=== PATIENT | female | born 1950 | race Caucasian/White ===

== ENCOUNTER 2021-08-30 09:14 | Outpatient (CLI) | payer OTHER, SELFPAY | END 2021-08-30 09:15 | disposition home or self-care (01) | PROVIDERS: PCP Family Medicine; Visit Provider Family Medicine | DX: M54.16 Radiculopathy, lumbar region (principal); M51.36 Other intervertebral disc degeneration, lumbar region | CPT/HCPCS: 62323; J0702; Q9966 ==

== ENCOUNTER 2021-10-11 10:12 | Outpatient (CLI) | payer OTHER, SELFPAY | END 2021-10-11 10:13 | disposition home or self-care (01) | LOC: INJ CL 10:14 | PROVIDERS: PCP Family Medicine; Visit Provider Family Medicine | DX: M54.16 Radiculopathy, lumbar region (principal); M51.36 Other intervertebral disc degeneration, lumbar region | CPT/HCPCS: 62323; J0702; Q9966 ==

== ENCOUNTER 2022-10-03 10:37 | Outpatient (CLI) | payer OTHER, SELFPAY | END 2022-10-03 10:38 | disposition home or self-care (01) | LOC: INJ CL 10:38 | PROVIDERS: PCP Family Medicine; Visit Provider Family Medicine | DX: M54.16 Radiculopathy, lumbar region (principal); M51.36 Other intervertebral disc degeneration, lumbar region | CPT/HCPCS: 62323; Q9966 ==

== ENCOUNTER 2023-03-03 19:49 | Outpatient (CLI) | payer OTHER, SELFPAY | END 2023-03-03 19:50 | disposition home or self-care (01) | LOC: AMB 03-05 10:51 | PROVIDERS: PCP Family Medicine; Visit Provider Family Medicine | DX: R53.81 Other malaise (principal); R53.1 Weakness | CPT/HCPCS: A0425; A0427 ==

== ENCOUNTER 2023-03-03 20:26 | Emergency (ER) | payer OTHER, SELFPAY ==
[2023-03-03] VITALS (20 sets, daily range): BP systolic 107–155; BP diastolic 71–97; PULSE 55–70; RESP 16; TEMP 36.6; O2SAT 95–100
--- NOTE | 2023-03-03 21:16 | CRLHL7_ITS ---
For Patients: As a result of the Century Cures Act, medical imaging exams and procedure reports are released immediately into your electronic medical record. You may view this report before your referring provider. If you have questions, please contact your health care provider. INDICATION: Bilateral arm ache and weakness, tingling fingers TECHNIQUE: Chest radiograph 1 view COMPARISON: 05/06/2021 FINDINGS: Mediastinum: The mediastinum is normal in appearance. Mild cardiomegaly is noted without interval change. Lung: Both lungs are unremarkable in appearance. The right lower lung zone is obscured by numerous overlying EKG wires. No sign of pleural effusion seen. No pneumothorax is identified. Bone and Soft tissue: Unremarkable for age. IMPRESSION: 1. Mild cardiomegaly is noted without interval change. Dictated by Aldo Velazquez MD @ 03/03/2023 10:57:01 PM Dictated by: Aldo Velazquez MD @ 03/03/2023 22:57:06 (Electronically Signed)
[2023-03-03 22:00] LABS: Troponin, Point-of-Care* 0.01 ng/ml (0.01-0.04)
[2023-03-03 22:01] LABS: Basophils Absolute Auto 0.04 K/uL (0.00-0.30); Basophils Percent Auto 0.8 % (0.0-3.0); Eosinophils Absolute Auto 0.09 K/uL (0.00-0.50); Eosinophils Percent Auto 1.9 % (0.0-7.0); Hematocrit 39.3 % (33.0-51.0); Hemoglobin* 12.4 gm/dL (12.0-16.0); Immature Granulocytes Abs Auto 0.01 K/uL (0.00-0.30); Immature Granulocytes Pct Auto 0.2 %; Lymphocytes Percent Auto 18.2 % (20-44); Mean Corpuscular HGB Conc 32 gm/dL (32-36); Mean Corpuscular Hemoglobin 30 pg (26-34); Mean Corpuscular Volume 94 fL (80-100); Neutrophils Absolute Auto 3.33 K/uL (1.7-7.0); Neutrophils Percent Auto 69.9 % (42.0-72.0); Platelet Count* 326 K/uL (140-440); RDW Coefficient of Variation % 12.6 % (11.5-15.5); Red Blood Count 4.19 m/uL (4.00-5.20); White Blood Count* 4.77 K/uL (4.50-11.00)
[2023-03-03 22:04] LABS: Slide Review Reflex No
[2023-03-03 22:15] LABS: Chloride* 100 mmol/L (96-114)
[2023-03-03 22:16] LABS: Potassium* 4.4 mmol/L (3.6-5.1); Sodium* 133 mmol/L (135-149)
--- NOTE | 2023-03-03 22:18 | ED.GENADULT ---
HPI - General Adult General Chief complaint: Weakness Stated complaint: Weakness, left arm pain Time Seen by Provider: 03/03/23 20:50 History of Present Illness HPI narrative: 35-40 minutes ago patient was on the phone with sister, during this phone call told sister she was feeling weird generalized weakness then weak on the left side. in tirage she states she didn 't really have weakness more pain. no nuero deficit noted in triage. 72-year-old woman presenting to the emergency department with concern of odd sensation and then presence of weakness describes it somewhat on the left side. Later seems to describe it more as an issue of pain. She describes feeling weak and then shaky. Now with just some finger tip sensory auditory bilaterally. Does have a history of chronic radicular symptoms in legs and feet. Sounds like some degree of restless legs? Denies a history of headaches. Maintains that taking medications regularly as prescribed. History taking is a little difficult. Did not have chest pain nor particular shortness of breath. No recent trauma. Daughter arrives later to describe more recently has been having delusions or hallucinations that involve some spirits, I believe 2 daughters of a resident, haunting adjacent apartment. She has been fixated on this. Sounds like this has been occurring over. Of a few months. In later conversation is initially quite hesitant or reticent but becomes increasingly candid. She does feel they could be listening from various devices as well. We speak in quieter tones initially. Related Data Home Medications Medication Instructions Recorded Confirmed amlodipine 2.5 mg tablet 2.5 mg PO DAILY 03/03/23 03/03/23 atenolol 100 mg tablet 100 mg PO DAILY 03/03/23 03/03/23 famotidine 40 mg tablet 40 mg PO DAILY 03/03/23 03/03/23 furosemide 20 mg tablet PO 03/03/23 gabapentin 100 mg capsule PO 03/03/23 lansoprazole 30 mg capsule,delayed 30 mg PO DAILY 03/03/23 03/03/23 release levothyroxine 112 mcg tablet 112 mcg PO DAILY 03/03/23 03/03/23 levothyroxine 125 mcg tablet 125 mcg PO DAILY 03/03/23 03/03/23 potassium chloride 20 mEq 20 meq PO BID 03/03/23 03/03/23 tablet,extended release(part/cryst) Allergies Allergy/AdvReac Type Severity Reaction Status Date / Time atorvastatin [From Lipitor] Allergy Verified 08/30/21 09:48 doxazosin [From Cardura] Allergy Verified 08/30/21 09:48 lisinopril Allergy Verified 08/30/21 09:48 metoprolol Allergy Verified 08/30/21 09:48 neomycin Allergy Verified 08/30/21 09:48 Penicillins Allergy Verified 08/30/21 09:48 sulfamethoxazole Allergy Verified 08/30/21 09:48 [From Bactrim] trimethoprim [From Bactrim] Allergy Verified 08/30/21 09:48 Review of Systems Status of ROS: Reports: 6 or more systems reviewed and unremarkable except as noted in History and below [facility] Social History Smoking Status: Never smoker How often do you have a drink containing alcohol: never AUDIT-C Alcohol total score: 0 Non-prescribed substance use: denies use Exam Narrative: Exam Narrative: Pleasant. Slim stature. NAD. Breathing easily. Lungs are clear. Back is actually nontender. I would hope to find some tenderness in the periscapular musculature that might explain some of her symptoms but nothing significant here. Extremities are well perfused without edema. Subjectively off to sensory on the finger tips as noted. No weaknesses. Actually quite good on strength throughout. Speaking smoothly. Thought content as noted above. Cranial nerves 2-12 are intact. Pupils are 2 mm and reactive and equal. Head is atraumatic. Neck is supple. Heart in regular rate and rhythm. Abdomen is soft and nontender. Const: Vital Signs, click to edit/add: Vital Signs - 24 hr 03/03/23 20:36 03/03/23 21:08 03/03/23 21:15 Temperature 97.8 F Pulse Rate 65 64 Pulse Rate [Pulse Oximeter] 70 Respiratory Rate 16 Blood Pressure Blood Pressure [Ri ght Upper Arm] 155/97 H Pulse Oximetry 99 100 95 Oxygen Delivery Me thod Room Air 03/03/23 21:17 03/03/23 21:18 03/03/23 21:33 Temperature Pulse Rate 64 64 Pulse Rate [Pulse Oximeter] Respiratory Rate Blood Pressure 107/71 138/79 Blood Pressure [Ri ght Upper Arm] Pulse Oximetry 99 100 Oxygen Delivery Me thod 03/03/23 21:36 03/03/23 21:47 03/03/23 22:02 Temperature Pulse Rate 61 70 Pulse Rate [Pulse Oximeter] Respiratory Rate Blood Pressure 135/83 136/89 Blood Pressure [Ri ght Upper Arm] Pulse Oximetry 100 99 Oxygen Delivery Me thod 03/03/23 22:03 03/03/23 22:15 03/03/23 22:17 Temperature Pulse Rate 68 70 67 Pulse Rate [Pulse Oximeter] Respiratory Rate Blood Pressure 132/89 Blood Pressure [Ri ght Upper Arm] Pulse Oximetry 100 99 99 Oxygen Delivery Me thod 03/03/23 22:30 03/03/23 22:33 03/03/23 22:45 Temperature Pulse Rate 62 62 55 L Pulse Rate [Pulse Oximeter] Respiratory Rate Blood Pressure 128/80 Blood Pressure [Ri ght Upper Arm] Pulse Oximetry 100 100 97 Oxygen Delivery Me thod 03/03/23 22:47 03/03/23 23:04 03/03/23 23:15 Temperature Pulse Rate 55 L 62 63 Pulse Rate [Pulse Oximeter] Respiratory Rate Blood Pressure 131/77 Blood Pressure [Ri ght Upper Arm] Pulse Oximetry 99 99 99 Oxygen Delivery Me thod 03/03/23 23:19 03/03/23 23:47 03/04/23 00:02 Temperature Pulse Rate 69 67 Pulse Rate [Pulse Oximeter] Respiratory Rate 16 16 Blood Pressure 137/92 H 133/83 132/81 Blood Pressure [Ri ght Upper Arm] Pulse Oximetry 95 99 Oxygen Delivery Me thod 03/04/23 00:16 03/04/23 00:30 03/04/23 00:32 Temperature Pulse Rate 65 70 70 Pulse Rate [Pulse Oximeter] Respiratory Rate 18 16 Blood Pressure 125/80 132/81 Blood Pressure [Ri ght Upper Arm] Pulse Oximetry 100 98 97 Oxygen Delivery Me thod 03/04/23 00:47 03/04/23 01:02 Temperature Pulse Rate 69 71 Pulse Rate [Pulse Oximeter] Respiratory Rate 18 16 Blood Pressure 137/91 H 126/78 Blood Pressure [Ri ght Upper Arm] Pulse Oximetry 99 98 Oxygen Delivery Me thod Course Vital Signs Vital signs: Initial Vital Signs Temperature 97.8 F 03/03/23 20:36 Temperature Source Temporal Artery Scan 03/03/23 20:36 Pulse Rate 70 03/03/23 20:36 Respiratory Rate 16 03/03/23 20:36 Blood Pressure 155/97 H 03/03/23 20:36 Blood Pressure Mean 116 H 03/03/23 20:36 Blood Pressure Position Supine 03/03/23 20:36 Pulse Oximetry 99 03/03/23 20:36 Oxygen Delivery Method Room Air 03/03/23 20:36 Vital Signs Temperature 97.8 F 03/03/23 20:36 Pulse Rate 70 03/03/23 20:36 Respiratory Rate 16 03/03/23 20:36 Blood Pressure 155/97 H 03/03/23 20:36 Pulse Oximetry 99 03/03/23 20:36 Oxygen Delivery Method Room Air 03/03/23 20:36 Temperature 97.8 F 03/03/23 20:36 Pulse Rate 71 03/04/23 01:02 Respiratory Rate 16 03/04/23 01:02 Blood Pressure 126/78 03/04/23 01:02 Pulse Oximetry 98 03/04/23 01:02 Oxygen Delivery Method Room Air 03/03/23 20:36 Medications Administered Medications: Discontinued Medications Generic Name Dose Route Start Last Admin Trade Name Freq PRN Reason Stop Dose Admin Sodium Chloride 1,000 mls @ 1,000 mls/hr 03/03/23 22:44 03/04/23 01:09 0.9 % Sodium Chloride 1000 Ml IV 03/03/23 23:43 Infused .Q1H ONE Infusion Medical Decision Making [facility] Narrative Medical decision making narrative: Initial evaluation focus is around the neuropathy/weakness. Question of CVA of sorts. Limited residual symptoms. Maybe complicated by anxiety. Differential I suppose also could include vascular disruption. Possible dysrhythmia. Later with report of escalating symptoms would also like to evaluate chemistries, thyroid, brain for any other anomaly/mass. Medication interactions? Dementia? A urinary tract infection could exacerbate but would not appear to be related to initially presenting symptoms. I am bothered by ache she has described into her arms, I believe her right arm, at 1 point. Consideration more of a vascular issue. Cannot reproduce on physical exam. IVs established. Received a L normal saline. Chest x-ray requested to evaluate mediastinum. Cardiac silhouette looks somewhat full otherwise no appreciable abnormality, infiltrate, with otherwise normal mediastinum Radiology over-read below INDICATION: Bilateral arm ache and weakness, tingling fingers TECHNIQUE: Chest radiograph 1 view COMPARISON: 05/06/2021 FINDINGS: Mediastinum: The mediastinum is normal in appearance. Mild cardiomegaly is noted without interval change. Lung: Both lungs are unremarkable in appearance. The right lower lung zone is obscured by numerous overlying EKG wires. No sign of pleural effusion seen. No pneumothorax is identified. Bone and Soft tissue: Unremarkable for age. IMPRESSION: 1. Mild cardiomegaly is noted without interval change CT head reviewed by me does not appear to show any acute abnormality. Symmetrical without evidence of mass. Radiology over-read below INDICATION: Hallucinations, fingertip numbness TECHNIQUE: CT Head without i.v. contrast. Coronal and sagittal reformats were obtained. COMPARISON: 02/23/2019 FINDINGS: CSF space: Unremarkable for age. Brain: No evidence of mass, acute infarction or hemorrhage is seen. No mass-effect or midline shift is seen. Mild diffuse cortical atrophy is noted. The brain parenchyma is otherwise normal in appearance with preservation of the hirsch-white matter junction. Calvarium: The visualized paranasal sinuses are well aerated. The mastoid air cells are clear. The visualized orbits are grossly unremarkable. The calvarium is unremarkable in appearance with no fractures identified. IMPRESSION: 1. No evidence of acute infarction, intracranial hemorrhage, or mass-effect seen. Revealed initial elements of case with Neurology. Newer aspects came to light later as described by family on arrival. Labs noted to be with elevated D-dimer. With radicular symptoms I am concerned for possible dissection though I think it is less likely. Radiology over-read below --suboptimal study. INDICATION: upper back pain, radiculopathy into fingers, elev d-dimer also concern for dissection . TECHNIQUE: CT chest PE was acquired with 95 cc Isovue 370 IV contrast. COMPARISON: None. FINDINGS: Heart and vasculature: Contrast opacification of the pulmonary arterial tree is adequate. No sign of pulmonary embolism. Heart size is enlarged. Thoracic aorta and pulmonary artery are normal in caliber.Coronary artery calcifications and/or stents. No significant contrast is noted within the ascending aorta and descending aorta. Limited evaluation for aortic dissection. Lungs and pleura: Mild bilateral emphysematous changes. Mild bibasilar atelectasis. No suspicious pulmonary opacities. Stable nodule abutting the left major fissure (/). No pleural effusions, pleural thickening, or pneumothorax. Lymph nodes/mediastinum: No mediastinal, hilar, or axillary adenopathy. Chest wall: No masses. Upper abdomen: No acute or significant findings. Bones: Unremarkable for age. IMPRESSION: No pulmonary embolism identified. No acute cardiopulmonary process identified. No significant contrast opacification of the thoracic aorta. Limited evaluation for dissection. Over time in the emergency department symptoms faded. Did not review again delusions/hallucinations. TSH did return rather suppressed. Too much exogenous thyroid might be contributing to the hallucination symptoms described? On further review it sounds as though had tried to decrease levothyroxine in the past and resulted in increased leg cramps. Does have gabapentin available. Appears safe generally. Discharged to care of family. Recommending close follow-up in primary care. See patient discharge plan Lab Data Lab results reviewed: Yes I reviewed the patient's lab results Labs: Lab Results 03/03/23 03/03/23 03/03/23 Range/Units 21:17 21:44 23:31 WBC 4.77 (4.50-11.00) K/uL RBC 4.19 (4.00-5.20) m/uL Hgb 12.4 (12.0-16.0) gm/dL Hct 39.3 (33.0-51.0) % MCV 94 (80-100) fL MCH 30 (26-34) pg MCHC 32 (32-36) gm/dL RDW Coeff of Arturo 12.6 (11.5-15.5) % Plt Count 326 (140-440) K/uL Neut % (Auto) 69.9 (42.0-72.0) % Lymph % (Auto) 18.2 L (20-44) % [place] % (Auto) 9.0 (0.0-11.0) % Eos % (Auto) 1.9 (0.0-7.0) % Baso % (Auto) 0.8 (0.0-3.0) % Neut # (Auto) 3.33 (1.7-7.0) K/uL Lymph # (Auto) 0.90 (0.90-2.90) K/uL [place] # (Auto) 0.40 (0.00-0.90) K/UL Eos # (Auto) 0.09 (0.00-0.50) K/uL Baso # (Auto) 0.04 (0.00-0.30) K/uL Abs Immat Gran (auto) 0.01 (0.00-0.30) K/uL Imm/Tot Granulo (auto) 0.2 % D-Dimer Quant (PE/DVT) 1.33 H (0.00-0.50) ug/ml Sodium 133 L (135-149) mmol/L Potassium 4.4 (3.6-5.1) mmol/L Chloride 100 (96-114) mmol/L Carbon Dioxide 26 (20-32) mmol/L Anion Gap 7 (7-15) mEq/L BUN 19 (7-30) mg/dL Creatinine 0.6 (0.5-1.5) mg/dL Estimated GFR 96 ml/min Glucose 84 (60-115) mg/dL Calcium 9.8 (8.4-10.6) mg/dL Magnesium 1.6 (1.5-2.6) mg/dL Troponin I < 0.01 L (0.01-0.04) ng/mL NT-Pro-B Natriuret Pep 1160 pg/mL TSH < 0.015 L (0.270-4.20) uIU/mL Urine Color Yellow (Yellow) Urine Appearance Clear (Clear) Urine pH 5.0 (5.0-8.5) Ur Specific [place] 1.015 (1.000-1.030) Urine Protein Negative (Negative) Urine Glucose (UA) Negative (Negative) Urine Ketones Negative (Negative) Urine Blood Negative (Negative) Urine Nitrite Negative (Negative) Urine Bilirubin Negative (Negative) Urine Urobilinogen 0.2 (0.2-1.0) Ur Leukocyte Esterase Negative (Negative) Urine RBC 2-5 A (0-2) Urine WBC 2-5 (0-5) Urine WBC Clumps None (None) Ur Squamous Epith Cells None (None-Few) Amorphous Sediment Few A (None) Urine Bacteria None (None) Ethyl Alcohol < 0.01 L (0.01-0.03) % POC Troponin I 0.01 (0.01-0.04) ng/ml ECG Data Attestation: I personally reviewed and interpreted this ECG as follows: (Normal sinus rhythm rate of 65) Discharge Plan Discharge Clinical Impression: Hearing voices, Hyperthyroidism, Radiculopathy Patient Disposition: Home w/ Parent or Adult Condition: Stable Additional Instructions: It appears you are getting too much thyroid medication or your thyroid is putting out too much thyroid hormone. I would like you to follow-up in clinic to clarify this picture. Usually is just a matter of decreasing the thyroid medication you are taking. Sounds as though recommendations were to decrease your thyroid medication in the past but you had too much leg cramps that may or may not have been related to that. You may find that taking your gabapentin more regularly and decreasing your thyroid medication in combination would be okay. These changes may also help you with some of the things you were mentioning of concern otherwise. Prescriptions: No Action atenolol 100 mg tablet 100 mg PO DAILY famotidine 40 mg tablet 40 mg PO DAILY amlodipine 2.5 mg tablet 2.5 mg PO DAILY potassium chloride 20 mEq tablet,ER particles/crystals 20 meq PO BID levothyroxine 125 mcg tablet 125 mcg PO DAILY lansoprazole 30 mg capsule,delayed release(DR/EC) 30 mg PO DAILY furosemide 20 mg tablet PO gabapentin 100 mg capsule PO levothyroxine 112 mcg tablet 112 mcg PO DAILY Follow Up/Referrals: Drea Escalante MD [Primary Care Provider] - Stand Alone Forms: [employer] Info Instructions
[2023-03-03 22:19] LABS: Anion Gap 7 mEq/L (7-15); Blood Urea Nitrogen* 19 mg/dL (7-30); Carbon Dioxide* 26 mmol/L (20-32); Creatinine* 0.6 mg/dL (0.5-1.5); Estimated Glomerular Filt Rate 96 ml/min; Glucose* 84 mg/dL (60-115)
[2023-03-03 22:20] LABS: Calcium* 9.8 mg/dL (8.4-10.6); D Dimer Quantitative* 1.33 ug/ml (0.00-0.50); Magnesium* 1.6 mg/dL (1.5-2.6)
[2023-03-03 22:23] LABS: Ethanol* < 0.01 % (0.01-0.03)
[2023-03-03 22:31] LABS: NT Pro B Type NatriureticPept* 1160 pg/mL; Troponin I* < 0.01 ng/mL (0.01-0.04)
--- NOTE | 2023-03-03 22:44 | CRLHL7_ITS ---
For Patients: As a result of the Century Cures Act, medical imaging exams and procedure reports are released immediately into your electronic medical record. You may view this report before your referring provider. If you have questions, please contact your health care provider. INDICATION: upper back pain, radiculopathy into fingers, elev d-dimer also concern for dissection . TECHNIQUE: CT chest PE was acquired with 95 cc Isovue 370 IV contrast. COMPARISON: None. FINDINGS: Heart and vasculature: Contrast opacification of the pulmonary arterial tree is adequate. No sign of pulmonary embolism. Heart size is enlarged. Thoracic aorta and pulmonary artery are normal in caliber.Coronary artery calcifications and/or stents. No significant contrast is noted within the ascending aorta and descending aorta. Limited evaluation for aortic dissection. Lungs and pleura: Mild bilateral emphysematous changes. Mild bibasilar atelectasis. No suspicious pulmonary opacities. Stable nodule abutting the left major fissure (/). No pleural effusions, pleural thickening, or pneumothorax. Lymph nodes/mediastinum: No mediastinal, hilar, or axillary adenopathy. Chest wall: No masses. Upper abdomen: No acute or significant findings. Bones: Unremarkable for age. IMPRESSION: No pulmonary embolism identified. No acute cardiopulmonary process identified. No significant contrast opacification of the thoracic aorta. Limited evaluation for dissection. Please note that all CT scans at this facility use dose modulation, iterative reconstruction, and/or weight-based dosing when appropriate to reduce radiation dose to as low as reasonably achievable. Dictated by Katya Landeros MD @ 03/04/2023 12:52:42 AM (Electronically Signed)
--- NOTE | 2023-03-03 22:51 | CRLHL7_ITS ---
For Patients: As a result of the Century Cures Act, medical imaging exams and procedure reports are released immediately into your electronic medical record. You may view this report before your referring provider. If you have questions, please contact your health care provider. INDICATION: Hallucinations, fingertip numbness TECHNIQUE: CT Head without i.v. contrast. Coronal and sagittal reformats were obtained. COMPARISON: 02/23/2019 FINDINGS: CSF space: Unremarkable for age. Brain: No evidence of mass, acute infarction or hemorrhage is seen. No mass-effect or midline shift is seen. Mild diffuse cortical atrophy is noted. The brain parenchyma is otherwise normal in appearance with preservation of the hirsch-white matter junction. Calvarium: The visualized paranasal sinuses are well aerated. The mastoid air cells are clear. The visualized orbits are grossly unremarkable. The calvarium is unremarkable in appearance with no fractures identified. IMPRESSION: 1. No evidence of acute infarction, intracranial hemorrhage, or mass-effect seen. Please note that all CT scans at this facility use dose modulation, iterative reconstruction, and/or weight-based dosing when appropriate to reduce radiation dose to as low as reasonably achievable. Dictated by: Aldo Velazquez MD @ 03/03/2023 23:55:54 (Electronically Signed)
[2023-03-03 22:59] LABS: Thyroid Stimulating Hormone* < 0.015 uIU/mL (0.270-4.20)
[2023-03-03] MEDS: 0.9 % SODIUM CHLORIDE 1000 ml 1,000 ML IV (23:19)
[2023-03-03 23:52] LABS: Appearance Urine Clear (Clear); Bilirubin Urine Negative (Negative); Blood Urine Negative (Negative); Color Urine Yellow (Yellow); Glucose Urine Negative (Negative); Ketones Urine Negative (Negative); Leukocyte Esterase Urine Negative (Negative); Nitrite Urine Negative (Negative); Protein Urine Negative (Negative); Specific Gravity Urine 1.015 (1.000-1.030); Urobilinogen Urine 0.2 (0.2-1.0)
[2023-03-04 00:02] VITALS: BP 132/81; PULSE 67; RESP 16; O2SAT 99
[2023-03-04 00:05] LABS: Amorphous Sediment Urine Few
[2023-03-04 00:16] VITALS: BP 125/80; PULSE 65; RESP 18; O2SAT 100
[2023-03-04 00:30] VITALS: PULSE 70; O2SAT 98
[2023-03-04 00:32] VITALS: BP 132/81; PULSE 70; RESP 16; O2SAT 97
[2023-03-04 00:47] VITALS: BP 137/91; PULSE 69; RESP 18; O2SAT 99
[2023-03-04 01:02] VITALS: BP 126/78; PULSE 71; RESP 16; O2SAT 98
--- NOTE | 2023-03-04 02:11 | PC.NURSE ---
DC instructions given to patient and her daughter, no further questions about DC instructions. all belongings sent home with patient
== END 2023-03-04 02:09 | disposition home or self-care (01) ==
PROVIDERS: Emergency Provider Family Medicine; PCP Family Medicine
DX: R44.0 Auditory hallucinations (principal); E03.9 Hypothyroidism, unspecified; M54.16 Radiculopathy, lumbar region
CPT/HCPCS: 36415; 70450; 71045; 71275; 80048; 81001; 82077; 83735; 83880; 84443; 84484; 85025; 85379; 93005; 99284; 99285; J7030; Q9967

== ENCOUNTER 2023-03-29 22:05 | Outpatient (CLI) | payer OTHER, SELFPAY | END 2023-03-29 22:06 | disposition home or self-care (01) | LOC: AMB 03-30 09:55 | PROVIDERS: PCP Family Medicine; Visit Provider Emergency Medicine | DX: I10 Essential (primary) hypertension (principal) | CPT/HCPCS: A0998 ==

== ENCOUNTER 2023-04-03 04:52 | Outpatient (CLI) | payer OTHER, SELFPAY | END 2023-04-03 04:53 | disposition home or self-care (01) | LOC: AMB 04-06 16:10 | PROVIDERS: PCP Family Medicine; Visit Provider Family Medicine | DX: I49.9 Cardiac arrhythmia, unspecified (principal); R53.1 Weakness | CPT/HCPCS: A0425; A0427 ==

== ENCOUNTER 2023-04-03 05:24 | Emergency (ER) | payer OTHER, SELFPAY ==
[2023-04-03] VITALS (14 sets, daily range): BP systolic 110–144; BP diastolic 72–99; PULSE 64–84; RESP 20; TEMP 36.1; O2SAT 89–100; BMI 15.0
--- NOTE | 2023-04-03 05:34 | ED_ITS ---
HPI - SOB/Dyspnea General Time Seen by Provider: 05:34 Date Seen: 05/02/23 Chief Complaint: Shortness of Breath/Dyspnea Stated Complaint: Short of breath/weakness Time Seen by Provider: 04/03/23 05:33 Source: patient, EMS, RN notes reviewed and old records reviewed Mode of arrival: ambulatory Limitations: no limitations History of Present Illness HPI Narrative: 72-year-old female comes in today with palpitations. History of left upper extremity radiculopathy and had a radiofrequency ablation yesterday. This evening felt like she was flushed and felt like her heart was pounding. For me she denies shortness of breath, chest pain, nausea, vomiting, diarrhea. Says she felt shaky with this episode as well . Related Data Home Medications Medication Instructions Recorded Confirmed amlodipine 2.5 mg tablet 2.5 mg PO DAILY 03/03/23 04/03/23 atenolol 100 mg tablet 100 mg PO DAILY 03/03/23 04/03/23 famotidine 40 mg tablet 40 mg PO DAILY 03/03/23 04/03/23 furosemide 20 mg tablet PO 03/03/23 gabapentin 100 mg capsule PO 03/03/23 lansoprazole 30 mg capsule,delayed 30 mg PO DAILY 03/03/23 04/03/23 release levothyroxine 112 mcg tablet 112 mcg PO DAILY 03/03/23 04/03/23 levothyroxine 125 mcg tablet 125 mcg PO DAILY 03/03/23 04/03/23 potassium chloride 20 mEq 20 meq PO BID 03/03/23 04/03/23 tablet,extended release(part/cryst) Allergies Allergy/AdvReac Type Severity Reaction Status Date / Time atorvastatin [From Lipitor] Allergy Verified 04/03/23 05:28 doxazosin [From Cardura] Allergy Verified 04/03/23 05:28 lisinopril Allergy Verified 04/03/23 05:28 metoprolol Allergy Verified 04/03/23 05:28 neomycin Allergy Verified 04/03/23 05:28 Penicillins Allergy Verified 04/03/23 05:28 sulfamethoxazole Allergy Verified 04/03/23 05:28 [From Bactrim] trimethoprim [From Bactrim] Allergy Verified 04/03/23 05:28 PFSH PFS Social History Smoking Status: Never smoker How often do you have a drink containing alcohol: never AUDIT-C Alcohol total score: 0 Non-prescribed substance use: denies use Exam Narrative: Exam Narrative: General: Well-developed and well-nourished, no acute distress Head: Atraumatic and normocephalic Eyes: Pupils are equal reactive, extraocular motions intact, conjunctiva clear ENT: External nose and ears are normal, posterior pharynx without erythema or exudate Neck: No midline cervical tenderness, full spontaneous range of motion the neck, trachea midline, no adenopathy Heart: Regular rate and rhythm no murmurs or thrills Lungs: Clear to auscultation bilaterally without wheezes or crackles Abdomen: Soft, nontender, nondistended with active bowel sounds Musculoskeletal: No tenderness, deformity, or edema Neurologic: Awake, alert, oriented x3 no gross focal neurologic deficits, cranial nerves intact as tested Psych: Mood and affect are appropriate Skin: No rash Const: Vital Signs, click to edit/add: Vital Signs - 24 hr 04/03/23 05:29 04/03/23 06:21 04/03/23 06:22 Temperature 97 F L Pulse Rate 84 76 Pulse Rate [Pulse Oximeter] 72 Respiratory Rate 20 Blood Pressure 140/94 H Blood Pressure [Ri ght Upper Arm] 144/99 H Pulse Oximetry 100 99 89 04/03/23 06:30 04/03/23 06:32 Temperature Pulse Rate 77 76 Pulse Rate [Pulse Oximeter] Respiratory Rate Blood Pressure 139/95 H Blood Pressure [Ri ght Upper Arm] Pulse Oximetry 100 100 Course Course ED Course: Patient seen and examined, emergency department record from March 03 reviewed. Patient presents today with palpitations, feeling like her heart is beating hard but not skipped beats or irregular. On exam here, monitor shows sinus rhythm with rate in the 70s. Lungs are clear and heart is regular. Labs ordered along with chest x-ray. Anticipate discharge Reevaluation(s) Time of Reevaluation #1: 06:25 Reevaluation #1: Chest x-ray independently interpreted by me demonstrates hyperinflation, no pneumothorax, no pleural effusion or infiltrate. Labs independently interpreted by me with negative troponin, normal CBC. Time of Reevaluation #2: 07:28 Reevaluation #2: Labs ordered and independently interpreted by me with normal basic metabolic panel, normal magnesium. Patient remained in sinus rhythm while in department and vital is stable. Stable for discharge with outpatient follow-up with primary care. Vital Signs Vital signs: Initial Vital Signs Temperature 97 F L 04/03/23 05:29 Temperature Source Temporal Artery Scan 04/03/23 05:29 Pulse Rate 72 04/03/23 05:29 Pulse Rhythm Regular 04/03/23 05:29 Pulse Strength 3+ Normal 04/03/23 05:29 Respiratory Rate 20 04/03/23 05:29 Blood Pressure 144/99 H 04/03/23 05:29 Blood Pressure Mean 114 H 04/03/23 05:29 Blood Pressure Position Sitting 04/03/23 05:29 Pulse Oximetry 100 04/03/23 05:29 Vital Signs Temperature 97 F L 04/03/23 05:29 Pulse Rate 72 04/03/23 05:29 Respiratory Rate 20 04/03/23 05:29 Blood Pressure 144/99 H 04/03/23 05:29 Pulse Oximetry 100 04/03/23 05:29 Temperature 97 F L 04/03/23 05:29 Pulse Rate 76 04/03/23 06:32 Respiratory Rate 20 04/03/23 05:29 Blood Pressure 139/95 H 04/03/23 06:32 Pulse Oximetry 100 04/03/23 06:32 MDM - SOB/Dyspnea Lab Data Labs: Lab Results 04/03/23 04/03/23 Range/Units 05:43 06:05 WBC 6.69 (4.50-11.00) K/uL RBC 3.81 L (4.00-5.20) m/uL Hgb 11.3 L (12.0-16.0) gm/dL Hct 35.7 (33.0-51.0) % MCV 94 (80-100) fL MCH 30 (26-34) pg MCHC 32 (32-36) gm/dL RDW Coeff of Arturo 13.1 (11.5-15.5) % Plt Count 368 (140-440) K/uL Neut % (Auto) 76.3 H (42.0-72.0) % Lymph % (Auto) 13.0 L (20-44) % [place] % (Auto) 8.8 (0.0-11.0) % Eos % (Auto) 1.0 (0.0-7.0) % Baso % (Auto) 0.6 (0.0-3.0) % Neut # (Auto) 5.10 (1.7-7.0) K/uL Lymph # (Auto) 0.90 (0.90-2.90) K/uL [place] # (Auto) 0.60 (0.00-0.90) K/UL Eos # (Auto) 0.07 (0.00-0.50) K/uL Baso # (Auto) 0.04 (0.00-0.30) K/uL Abs Immat Gran (auto) 0.02 (0.00-0.30) K/uL Imm/Tot Granulo (auto) 0.3 % Sodium 136 (135-149) mmol/L Potassium 4.3 (3.6-5.1) mmol/L Chloride 102 (96-114) mmol/L Carbon Dioxide 26 (20-32) mmol/L Anion Gap 8 (7-15) mEq/L BUN 14 (7-30) mg/dL Creatinine 0.6 (0.5-1.5) mg/dL Estimated Creat Clear 32.77 Estimated GFR 96 ml/min Glucose 98 (60-115) mg/dL Calcium 9.0 (8.4-10.6) mg/dL Magnesium 2.0 (1.5-2.6) mg/dL POC Troponin I 0.01 (0.01-0.04) ng/ml ECG Data Attestation: I personally reviewed and interpreted this ECG as follows: ECG interpretation date: 04/03/23 ECG interpretation time: 06:16 Interpretation: Performed at 6:16 a.m. ill interpreted by me with sinus rhythm rate 71, no acute ST elevations or depressions, normal intervals, normal axis, QTC 410, [place] 152. Compared to prior March 04, there are no acute changes Discharge Plan Discharge Clinical Impression: Heart palpitations Patient Disposition: Home, Self-Care Condition: Stable Instructions: Heart Palpitations (DC) Activity Level: No Restrictions Discharge Diet: Regular Prescriptions: No Action atenolol 100 mg tablet 100 mg PO DAILY famotidine 40 mg tablet 40 mg PO DAILY amlodipine 2.5 mg tablet 2.5 mg PO DAILY potassium chloride 20 mEq tablet,ER particles/crystals 20 meq PO BID levothyroxine 125 mcg tablet 125 mcg PO DAILY lansoprazole 30 mg capsule,delayed release(DR/EC) 30 mg PO DAILY furosemide 20 mg tablet PO gabapentin 100 mg capsule PO levothyroxine 112 mcg tablet 112 mcg PO DAILY Follow Up/Referrals: Drea Escalante MD [Primary Care Provider] - Stand Alone Forms: [facility] Info Instructions
--- NOTE | 2023-04-03 05:42 | CRLHL7_ITS ---
For Patients: As a result of the Century Cures Act, medical imaging exams and procedure reports are released immediately into your electronic medical record. You may view this report before your referring provider. If you have questions, please contact your health care provider. Indication: Palpitations Technique: Chest 2 views Comparison: Chest x-ray 03/03/2023 Findings/Impression: Cardiovascular and mediastinum: Heart size and vasculature are normal in caliber and appearance. Mediastinum is within normal limits. Lungs and pleural spaces: No pleural effusion or pneumothorax. No focal pulmonary consolidation. Bones and soft tissues: No significant findings. Dictated by Tomy Trujillo MD @ 04/03/2023 7:17:33 AM (Electronically Signed)
[2023-04-03 06:16] LABS: Basophils Absolute Auto 0.04 K/uL (0.00-0.30); Basophils Percent Auto 0.6 % (0.0-3.0); Eosinophils Absolute Auto 0.07 K/uL (0.00-0.50); Hematocrit 35.7 % (33.0-51.0); Hemoglobin* 11.3 gm/dL (12.0-16.0); Immature Granulocytes Abs Auto 0.02 K/uL (0.00-0.30); Immature Granulocytes Pct Auto 0.3 %; Mean Corpuscular HGB Conc 32 gm/dL (32-36); Mean Corpuscular Hemoglobin 30 pg (26-34); Mean Corpuscular Volume 94 fL (80-100); Monocytes Percent Auto 8.8 % (0.0-11.0); Neutrophils Percent Auto 76.3 % (42.0-72.0); Platelet Count* 368 K/uL (140-440); RDW Coefficient of Variation % 13.1 % (11.5-15.5); Red Blood Count 3.81 m/uL (4.00-5.20); White Blood Count* 6.69 K/uL (4.50-11.00)
[2023-04-03 06:21] LABS: Slide Review Reflex No
[2023-04-03 06:27] LABS: Troponin, Point-of-Care* 0.01 ng/ml (0.01-0.04)
[2023-04-03 06:30] LABS: Chloride* 102 mmol/L (96-114); Potassium* 4.3 mmol/L (3.6-5.1); Sodium* 136 mmol/L (135-149)
[2023-04-03 06:33] LABS: Anion Gap 8 mEq/L (7-15); Blood Urea Nitrogen* 14 mg/dL (7-30); Carbon Dioxide* 26 mmol/L (20-32); Creatinine* 0.6 mg/dL (0.5-1.5); Est. Creatinine Clearance* 32.77; Estimated Glomerular Filt Rate 96 ml/min; Glucose* 98 mg/dL (60-115)
== END 2023-04-03 08:10 | disposition home or self-care (01) ==
PROVIDERS: Emergency Provider Family Medicine; PCP Family Medicine
DX: R00.2 Palpitations (principal)
CPT/HCPCS: 36415; 71046; 80048; 83735; 84484; 85025; 93005; 99284; 99285

== ENCOUNTER 2023-09-11 11:02 | Outpatient (CLI) | payer OTHER, SELFPAY | END 2023-09-11 11:03 | disposition home or self-care (01) | LOC: INJ CL 11:04 | PROVIDERS: PCP Family Medicine; Visit Provider Family Medicine | DX: M54.16 Radiculopathy, lumbar region (principal); M51.36 Other intervertebral disc degeneration, lumbar region | CPT/HCPCS: 62323; J0702; Q9966 ==

== ENCOUNTER 2024-05-20 10:55 | Outpatient (CLI) | payer MEDICARE, BC, SELFPAY | END 2024-05-20 10:56 | disposition home or self-care (01) | LOC: INJ CL 10:56 | PROVIDERS: PCP Family Medicine; Visit Provider Family Medicine | DX: M54.16 Radiculopathy, lumbar region (principal); M51.369 Other intervertebral disc degeneration, lumbar region without mention of lumbar back pain or lower extremity pain | CPT/HCPCS: 62323; J0702; Q9966 ==

== ENCOUNTER 2024-11-10 16:08 | Outpatient (CLI) | payer MEDICARE, BC, SELFPAY | END 2024-11-10 16:09 | disposition home or self-care (01) | LOC: AMB 11-11 11:13 | PROVIDERS: PCP Family Medicine; Visit Provider Emergency Medicine Emergency Medical Services | DX: R41.82 Altered mental status, unspecified (principal) | CPT/HCPCS: A0425; A0427 ==

== ENCOUNTER 2024-11-10 16:43 | Inpatient (IN) | payer MEDICARE, BC, SELFPAY ==
[2024-11-10] VITALS (22 sets, daily range): BP systolic 115–131; BP diastolic 77–99; PULSE 98–121; RESP 11–27; TEMP 37.2–37.7; O2SAT 91–98; BMI 15.2
--- OUTSIDE RECORDS SUMMARY | 2024-11-10 16:45 | XMS_ITS | Clinical Summary ---
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 Name Role Phone Drea Escalante MD Primary Care Prov ider Pj Wilson MD Unavailable [phone] Allergies Active Allergy Reactions Criticality Noted Date Comments Sulfamethoxazole-Trime thoprim Rash 07/16/2006 Doxazosin Muscle Weakness 11/13/2017 Estrogens Intolerance-Can't Take 07/16/2006 Atorvastatin Intolerance-Can't Take 07/16/2006 bad headaches Lisinopril Angioedema 11/13/2017 See ER note 05/14/20 Metoprolol Muscle Weakness 11/13/2017 Neomycin Rash Medium 07/11/2016 Penicillins Rash 07/16/2006 Is able to take amoxicillin Medications CALCIUM CARBONATE-VITAM IN D3 500 MG (1,250 MG)-400 UNIT CHEWABLE TAB 1 daily 1 0 04/13/19 09 Active MULTIVITAMIN TAB take 1 tablet by oral route once daily with food 1 0 04/13/19 09 Active aspirin, buffered (ASCRIPTIN) 325 mg buffered tablet Take 1 tablet by mouth once daily. 0 04/30/19 11 Active hydrocortisone 2.5% creamIndication s:Hemorrhoids, unspecified hemorrhoid type Apply topically to affected area(s) 3 times daily if needed for Itching. HOLD until patient calls 120 g 6 06/23/19 17 Active medication order composer Take 2 g by mouth 3 times daily. Sodium Chloride 2 mg three times daily 0 08/02/19 22 Active magnesium glycinate 100 mg magnesium cap Take 100 mg by mouth four times daily. 0 03/07/19 Active ferrous sulfate 325 mg delayed release tabletIndicatio ns:Anemia of unknown etiology Twice weekly 90 Tablet 3 05/12/19 Active triamcinolone 0.025% (ARISTOCORT) 0.025 % ointmentIndicat ions:Rash Apply topically to affected area(s) two times daily. 80 g 1 09/14/19 Active furosemide (LASIX) 20 mg tabletIndicatio ns:Bilateral lower extremity edema Take 0.5 Tablets (10 mg) by mouth once daily in the morning. HOLD until patient calls 45 Tablet 3 04/22/19 25 Active famotidine (PEPCID) 40 mg tabletIndicatio ns:Gastroesopha geal reflux disease, unspecified whether esophagitis present Take 1 Tablet (40 mg) by mouth once daily. HOLD until patient calls 90 Tablet 3 04/22/19 Active gabapentin (NEURONTIN) 100 mg capsuleIndicati ons:Chronic midline low back pain without sciatica Take 1 Capsule (100 mg) by mouth two times daily. HOLD until patient calls 180 Capsule 3 04/22/19 Active Additional Information Patient not taking.Reported on 11/03/2024 lansoprazole 30 mg capsuleIndicati ons:Gastroesoph ageal reflux disease, unspecified whether esophagitis present Take 1 Capsule (30 mg) by mouth once daily. HOLD until patient calls 90 Capsule 4 04/22/19 Active potassium chloride (KLOR-CON M20) 20 mEq extended-releas e tablet (part/cryst)Ind ications:Histor y of hypokalemia Take 1 Tablet (20 mEq) by mouth two times daily with meals. HOLD until patient calls 180 Tablet 3 04/22/19 Active medication order composer 2 g three times daily. She takes 1 gm Salt tabs over the counter 2 pills three times daily 04/22/19 Active acetaminophen (TYLENOL) 500 mg capsule Take 1 Capsule (500 mg) by mouth every 6 hours if needed. Max acetaminophen dose: 4000mg in 24 hrs. 09/16/19 Active traMADoL (ULTRAM) 50 mg tabletIndicatio ns:Chronic midline low back pain without sciatica TAKE ONE TABLET (50 MG) BY MOUTH UP TO TWICE DAILY NEEDED; CAUTION: CAUTION: OPIOID - RISK OF OVERDOSE AND ADDICTION - RISK OF OVERDOSE AND ADDICTION. Please schedule appointment before next refill needed 60 Tablet 10/23/19 25 Active sulfaSALAzine (AZULFIDINE) 500 mg tabletIndicatio ns:Collagenous colitis Take 0.5 Tablets (250 mg) by mouth two times daily. 90 Tablet 3 10/08/19 25 Active levothyroxine (SYNTHROID) 112 mcg tabletIndicatio ns:Hypothyroidi sm, acquired Take 1 Tablet (112 mcg) by mouth once daily. Dose decrease as of 08/19/2024 (joelle on 125 mcg dose) 90 Tablet 3 10/08/19 25 Active losartan (COZAAR) 50 mg tabletIndicatio ns:Chilblains, initial encounter Take 1 Tablet (50 mg) by mouth once daily. 90 Tablet 3 11/04/19 25 Active amLODIPine (NORVASC) 2.5 mg tabletIndicatio ns:Chilblains, initial encounter Take 1 Tablet (2.5 mg) by mouth two times daily. 60 Tablet 11 11/04/19 25 Active amLODIPine (NORVASC) 2.5 mg tabletIndicatio ns:Hypertension , unspecified type Take 1 Tablet (2.5 mg) by mouth once daily. HOLD until patient calls 90 Tablet 3 04/22/19 25 025 Discontin ued(*Medi cation adjustmen t) atenoloL (TENORMIN) 100 mg tabletIndicatio ns:Hypertension , unspecified type Take 1 Tablet (100 mg) by mouth once daily. HOLD until patient calls 90 Tablet 3 04/22/19 25 025 Discontin ued(*Med complete/ Regimen complete/ Level of care change) Active Problems Problem Noted Date Diagnosed Date Paranoia 09/16/2024 Overview (09/23/2024): Per psychiatry 08/2024: auditory, olfactory hallucinations and paranoia regarding her downstairs neighbors. Her clinical presentation does not match that of schizophrenia. She had mild executive and language deficits on cognitive assessment. Extensive testing workup was negative except for an erythrocyte sedimentation rate of 67 mm/h and a C-reactive protein of 0.7 mg/dL. She has history of collagenous colitis She agreed to a geriatric psychiatry electronic consultation. She declined neurological, neuropsychological evaluations as these would need to be done outside of town and she has not driven in 2-1/2 years since she started having these hallucinations. She was not interested in a head MRI or occupational therapy evaluation to check her functioning in instrumental activities of daily living. Instead, she requested symptomatic treatment and observation of the evolution. Possible cognitive disorder. Hearing voices 09/16/2024 Delusion 04/22/2024 Hypomagnesemia 10/23/2023 Bilateral lower extremity edema 10/23/2023 History of hypokalemia 10/23/2023 Gastroesophageal reflux disease 10/23/2023 Sensorineural hearing loss, bilateral 03/20/2018 Cystocele, midline 11/01/2017 Cystocele, midline 09/27/2017 Skin cancer, basal cell 07/17/2016 Overview (07/17/2016): Excision 2017. SKIN, LEFT CHEST, EXCISION: 1. Basal cell carcinoma, nodular type: a. Perineural invasion: Absent b. Margins: Negative but less than 1 mm in the planes examined Hypercholesterolemia 06/02/2015 Microscopic colitis 06/18/2013 Overview (06/18/2013): Colonoscopy 05/2013 collagenous colitis repeat in 5 years Anxiety disorder 05/19/2011 Hypertension 05/19/2011 Low back pain 05/31/2009 Osteopenia 04/13/2008 Overview (01/02/2019): 2011 osteopenia 3-5 yrs 2018 No significant change in the bone loss since previous check. Recommend recheck in 3 to 5 years. 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 Hypothyroidism, acquired Overview (05/22/2011): radioactive iodine treatment for hyperthyroidism Resolved Problems Problem Noted Date Diagnosed Date Resolved Date Protein-calorie malnutrition , unspecified severity 03/31/2021 03/07/2022 Unspecified hypothyroidism 04/05/2007 0 05/22/2011 Overview (04/05/2007): HYPOTHYROIDISM PRIMARY Encounters Date Type Department Care Team Description 11/03/2024 8:30 AM CDT Telemedicine [facility] [address] [place] [address] Jimy Barahona MD 10/30/2024 Travel 10/20/2024 Telephone [facility] [address] [place] [address] Drea Escalante MD Referral (Questions about Gastro Referral) 10/07/2024 10:45 AM CDT Phone Office Visit [facility] [address] [place] [address] Drea Escalante MD Results 10/06/2024 3:15 PM CDT Orders Only [facility] [address] [place] [address] Lab, [place] <No scans attached> 10/06/2024 2:30 PM CDT Office Visit [facility] [address] [place] [address] Robert Clrak MD Follow Up (Blood flow to toes/US 07/07/24/) 10/06/2024 Travel 09/23/2024 Telephone [facility] [address] [place] [address] Drea Escalante MD Questions 09/19/2024 Telephone [facility] [address] [place] [address] Mirza Logan MD Medication Management 09/19/2024 E-Consult [facility] [address] [facility] [address] [place] [id number] Hawa Hall DO 09/18/2024 Telephone [facility] [address] [place] [address] Mirza Logan MD Medication Management (NEW MEDICATION) 09/18/2024 Telephone [facility] [address] [place] [address] Mirza Logan MD Prior Authorization (OLANzapine (ZYPREXA) 2.5 mg tablet APPROVED 06/20/24-09/18/25) 09/16/2024 10:30 AM CDT Office Visit [address] [address] Mirza Logan MD Follow Up; Medication Management 09/16/2024 Travel 09/09/2024 10:30 AM CDT Office Visit [address] [address] Mirza Logan MD Mental Health Intake 09/09/2024 Travel 08/31/[address] [address] Drea Escalante MD Results 08/28/2024 3:00 PM CDT Orders Only [address] [address] Lab, [place] Lab 08/28/[address] [address] Mirza Logan MD Questionnaire 08/28/2024 Travel 08/22/2024 Telephone [facility] [address] [place] [address] Robert Clark MD Referral 08/21/2024 Refill [facility] [address] [place] [address] Drea Escalante MD Refill Request (Tramadol) 08/18/[address] [address] Drea Escalante MD Questions from Last 3 Months Immunizations Immunization Administration Dates Next Due AMB Influenza, IIV4 PF (=>6 mos Flulaval,Fluzone Fluarix)(Flu Clinic Only) 12/14/2015 Amb Influenza, Inactivated A IIV4 (Age 65+ Years) Preserv Free 12/05/2019 COVID-19 VACCINE SPIKEVAX (M ODERNA 50MCG/0.5ML) 12YO+ PFS 02/01/2023 COVID-19 vaccine (Moderna 100mcg/0.5mL) PF, MDV 06/14/2021 COVID-19 vaccine (InterviewBest-Bio NTech 30mcg/0.3mL) 12YO+ BIVALENT PF, MDV 11/22/2021 COVID-19 vaccine (Pfizer-Bio NTech 30mcg/0.3mL) PF, MDV 01/04/2021,06/28/2020,06/07/2020 DTaP 04/17/2005 Influenza, High-dose Quadriv alent Inactivated 01/11/2023 Influenza, IIV3 (Age 6-35 mos) 12/29/2009 Influenza, IIV3 (Age >=3 years) 12/11/19 14,11/13/2012,11/15/2011,2010,01/25/2009,02/06/2003 Influenza, IIV4 12/14/2015,11/13/2012 Influenza, IIV4 (=>6mos) MDV 11/17/2014 Influenza, Inactivated AIIV4 (Age 65+ Years) Preserv Free 01/03/2022,11/22/2020 Influenza, Inactivated IIV3 (Age 65+ Years) Preserv Free 12/30/2018,05/21/2018,12/01/2016 Pneumococcal Poly,23-Valent (Pneumovax) 09/16/2019 Pneumococcal conj 13-Valent (Prevnar 13) 07/01/2018 Tdap 05/19/2013,04/17/2005 Zoster (Zostavax-ZVL, live) 02/22/2012 Family History Medical History Relation Name Comments Heart attack Brother Other Brother agent orange Cancer Father stomach Hypothyroidism Father Cancer-colon Mother age 75 Diabetes Mother Stroke Mother Heart Disease Other none Psychiatric illness Other psychiat keke hospitalization after an accident Diabetes Sister 1 Cancer Sister 2 age 78 - melano ma? Kidney cancer Sister 3 Twin Cancer-breast No Family History Cancer-ovarian No Family History Relation Name Status Comments Brother Father Mother Other Sister 1 Sister 2 Sister 3 Social History Tobacco Use Types Packs/Day Years Used Date Smoking Tobacco: Former Cigarettes 0.5 30 Smokeless Tobacco: Never Tobacco Cessation:Counseling Given: Not Answered Alcohol Use Standard Drinks/Week Comments Not Currently 0 (1 standard drink = 0.6 oz pur e alcohol) PHQ-2 Answer Date Recorded PHQ-2 TOTAL SCORE 0 09/16/2024 Social Connections Answer Date Recorded Do you often feel lonely or isolated from those around you? 0 10/23/2023 Financial Resource Strain Answer Date R ecorded Difficulty of Paying Living Expenses 3 10/23/2023 Difficulty of Paying Living Expenses Not on file 10/23/2023 Food Insecurity Answer Date Recorded Do you worry your food will run out before you are able to buy more? 1 10/23/2023 Transportation Needs Answer Date Record ed Does lack of transportation keep you from medica l appointments? 1 10/23/2023 Does lack of transportation keep you from work, meetings or getting things that you need? 1 10/23/2023 Housing Stability Answer Date Recorded What is your housing situation today? 1 10/23/2023 Utilities Answer Date Recorded Do you have trouble paying f or utilities (for example, heat, electricity, water, phone)? 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 Not on file Not on file Obstetrics History Last Filed Vital Signs Vital Sign Reading Time Taken Comments Blood Pressure 135/85 10/06/2024 2:29 PM CDT Pulse 60 10/06/2024 2:29 PM CDT Temperature 36.7 C (98.1 F) 10/10/2023 9:09 AM CDT Respiratory Rate 16 09/27/2023 1:20 PM CDT Oxygen Saturation 99% 04/22/2024 11:19 AM KEEPER HELPER Inhaled Oxygen Concentration - - Weight 38.8 kg (85 lb 9.6 oz) 10/06/2024 2:29 PM CDT Height 156 cm (5' 1.42) 09/09/2024 10:33 AM CDT Body Mass Index 15.96 09/09/2024 10:33 AM CDT Plan of Treatment Upcoming Encounters Date Type Department Care Team (Late st Contact Info) Description 11/12/2024 3:00 PM CDT Orders Only [facility] [address] [facility] [place] [address] Lab, [place] 01/08/2025 9:30 AM KEEPER HELPER Office Visit [facility] [address] [place] [address] Jason Christopher MD [address] [place] [address] Health Maintenance Due Date Last Done Comments RSV vaccine for adults or (1 - Risk 60-74 years 1-dose series) 2011 Zoster (shingles) series for age 50+ (2 of 3) 04/18/2012 02/22/2012 Tetanus booster 05/20/2023 05/19/2013, 04/17/2005 Mammogram for age 45-75 09/14/2023 09/14/19 23, 01/02/2020, 05/31/2015, Additional history exists Fecal testing non-DNA (FIT,FOBT,iFOBT) for age 45-75 09/29/2023 09/28/2022, 11/25/2020 Medicare Wellness for age 65+ 10/23/2024 10/23/2023, 09/13/2022, 09/13/2022, Additional history exists COVID-19 vaccine series ( season) 2024 02/12/2024, 02/01/2023, 11/22/2021, Additional history exists Influenza Vaccine (#1) 2024 , 11/22/2020, 12/05/2019, Additional history exists BMI (ht and wt on same day) for age 18+ 09/09/2025 09/09/2024, 10/23/2023, 09/13/2022, Additional history exists Depression screening for age 12+ 09/16/2025 09/16/2024, 09/09/2024, 06/11/2024, Additional history exists Lipids for age 45-75 10/22/2028 10/23/2023, 09/13/2022, 11/22/2020, Additional history exists Pneumococcal series for age 50+ Completed 09/16/2019, 07/01/2018 Hepatitis C screening for age 18-79 Completed 09/13/2022, 04/13/2003 DEXA/DXA scan for age 65+ Completed 2023, 12/30/2018, 06/02/2011, Additional history exists Hepatitis B series for 19+ Aged Out N o longer eligible based on patient's age to complete this topic Procedures Procedure Name Priority Date/Time Associated Diagnosis Comments C-REACTIVE PROTEIN Routine 10/06/2024 2: 58 PM CDT Weight loss SEDIMENTATION RATE Routine 10/06/2024 2: 58 PM CDT Weight loss CBC W PLT NO DIFF Routine 10/06/2024 2:5 8 PM CDT Weight loss TSH Routine 10/06/2024 2:58 PM CDT Weight loss MAGNESIUM Routine 10/06/2024 2:58 PM CDT Weight loss BASIC METABOLIC PANEL Routine 10/06/2024 2:58 PM CDT Weight loss AMMONIA Routine 10/06/2024 2:58 PM CDT Weight loss ANTINUCLEAR ANTIBODY BY IFA Routine 09/09/2024 12:38 PM CDT Psychosis, unspecified psychosis type (HC) SEDIMENTATION RATE Routine 09/09/2024 12 :38 PM CDT Psychosis, unspecified psychosis type (HC) C-REACTIVE PROTEIN Add On 09/09/2024 12 :37 PM CDT Psychosis, unspecified psychosis type (HC) COMPLIANCE DRUG ANALYSIS Routine 09/09/2024 12:37 PM CDT Psychosis, unspecified psychosis type (HC) UA W/ SEDIMENT EXAM REFLEXED PER CRITERIA Routine 09/09/2024 12:37 PM CDT Psychosis, unspecified psychosis type (HC) TREPONEMA PALLIDUM Routine 09/09/2024 12 :37 PM CDT Psychosis, unspecified psychosis type (HC) TSH Routine 08/28/2024 3:25 PM CDT Hypothyroidism, acquired CBC W PLT NO DIFF Routine 08/28/2024 3:2 5 PM CDT Mild chronic anemia XR DXA BONE DENSITY 1 SITE AXIAL AND 1 SITE PERIPHERAL Routine 11/13/2023 11:47 AM CDT Post-menopausal LIPID PANEL W REFLEX MEASURED LDL Routine 10/23/2023 4:25 PM CDT Screening for lipoid disorders OCCULT BLOOD IFOBT STOOL Routine 09/28/2022 2:57 PM CDT Screening for colon cancer XR MAMMO BILAT SCREENING Routine 09/13/2022 12:12 PM CDT Visit for screening mammogram LC HCV ANTIBODY RFX TO QUANT PCR Routine 09/13/2022 11:40 AM CDT Weight loss, unintentional from Last 3 Months or Most Recently Relevant to Health Maintenance Results * (ABNORMAL) SEDIMENTATION RATE (10/06/2024 2:58 PM CDT) Only the most recent of2 resultswithin the time period is included. SED RATE BY MODIFIED WESTERGREN 60(H) < OR = 30 mm/h [employer] Blood BLOOD SPECIMEN / Unknown 10/06/2024 2:58 PM CDT 10/06/2024 2:58 PM CDT us Drea Escalante MD HEMATOLOGY Fi nal Result [facility] [address] [place] [address], [facility] [address] [place] [address] * TSH (10/06/2024 2:58 PM CDT) Only the most recent of2 resultswithin the time period is included. [facility] TSH 1.53 0.40 - 4.50 mIU/L [facility] [employer] jerome Zhu Blood BLOOD SPECIMEN / Unknown 10/06/2024 2:58 PM CDT 10/06/2024 2:58 PM CDT Drea Escalante MD CHEMISTRY Fi nal Result [facility] [address] [address], [employer] [address] [place] [phone] * (ABNORMAL) CBC W PLT NO DIFF (10/06/2024 2:58 PM CDT) Only the most recent of2 resultswithin the time period is included. [facility] WHITE BLOOD CELL COUNT 6.7 3.8 - 10.8 Thousand/u L [facility] RED BLOOD CELL COUNT 4.02 3.80 - 5.10 Million/uL [facility] HEMOGLOBIN 9.6(L) 11.7 - 15.5 g/dL [facility] HEMATOCRIT 31.8(L) 35.0 - 45.0 % [facility] MCV 79.1(L) 80.0 - 100.0 fL [facility] MCH 23.9(L) 27.0 - 33.0 pg [facility] MCHC 30.2(L) 32.0 - 36.0 g/dL [facility] Comment: For adults, a slight decrease in the calculated MCHC value (in the range of 30 to 32 g/dL) is most likely not clinically significant; however, it should be interpreted with caution in correlation with other red cell parameters and the patient's clinical condition. RDW 14.5 11.0 - 15.0 % [facility] PLATELET COUNT 532(H) 140 - 400 Thousand/u L [facility] MPV 10.6 7.5 - 12.5 fL [facility] Blood BLOOD SPECIMEN / Unknown 10/06/2024 2:58 PM CDT 10/06/2024 2:58 PM CDT Drea Escalante MD HEMATOLOGY Fi nal Result Performing Organization Address [facility]/ZIP Co de Phone Number [facility] [address] [address], [facility] [address] * C-REACTIVE PROTEIN (10/06/2024 2:58 PM CDT) Only the most recent of2 resultswithin the time period is included. C-REACTIVE PROTEIN (MG/L) 4.2 <8.0 mg/L [facility] Blood BLOOD SPECIMEN / Unknown 10/06/2024 2:58 PM CDT 10/06/2024 2:58 PM CDT Drea Escalante MD CHEMISTRY Fi nal Result [facility] [address] [address], [place] [phone] [facility] [address] [facility] [place] [address] * MAGNESIUM (10/06/2024 2:58 PM CDT) MAGNESIUM 1.8 1.5 - 2.5 mg/dL [facility] Blood BLOOD SPECIMEN / Unknown 10/06/2024 2:58 PM CDT 10/06/2024 2:58 PM CDT Drea Escalante MD CHEMISTRY Fi nal Result Performing Organization Address [facility]/ZIP Co de Phone Number [facility] [address] [address], [facility] [address] [place] [address] * AMMONIA (10/06/2024 2:58 PM CDT) AMMONIA (P) 16 < OR = 72 umol/L [facility] Blood BLOOD SPECIMEN / Unknown 10/06/2024 2:58 PM CDT 10/06/2024 2:58 PM CDT Drea Escalante MD CHEMISTRY Fi nal Result Performing Organization Address [facility] de Phone Number [facility] [address] [address], [facility] [address] [place] [address] * BASIC METABOLIC PANEL (10/06/2024 2:58 PM CDT) GLUCOSE 71 65 - 99 mg/dL [facility] Comment: Fasting reference interval UREA NITROGEN (BUN) 16 7 - 25 mg/dL [facility] CREATININE 0.91 0.60 - 1.00 mg/dL [facility] EGFR 67 > OR = 60 mL/min/1. 73m2 [facility] BUN/CREATININE RATIO SEE NOTE: 6 - 22 (calc) [facility] Comment: Not Reported: BUN and Creatinine are within reference range. SODIUM 136 135 - 146 mmol/L [facility] POTASSIUM 5.3 3.5 - 5.3 mmol/L [facility] CHLORIDE 101 98 - 110 mmol/L [facility] CARBON DIOXIDE 25 20 - 32 mmol/L [facility] ELECTROLYTE BALANCE 10 7 - 17 mmol/L (calc) [facility] CALCIUM 9.7 8.6 - 10.4 mg/dL [facility] Blood BLOOD SPECIMEN / Unknown 10/06/2024 2:58 PM CDT 10/06/2024 2:58 PM CDT Drea Escalante MD CHEMISTRY Fi nal Result Performing Organization Address [facility]/ZIP Co de Phone Number [facility] [address] [place] [address], [employer])[facility] [address] [place] [address] * ANTINUCLEAR ANTIBODY BY IFA (09/09/2024 12:38 PM CDT) Pathologist [facility] LEI SCREEN, IFA NEGATIVE NEGATIVE [facility] Comment: LEI IFA is a first line screen for detecting the presence of up to approximately 150 autoantibodies in various autoimmune diseases. A negative LEI IFA result suggests an LEI-associated autoimmune disease is not present at this time, but is not definitive. If there is high clinical suspicion for Sjogren's syndrome, testing for anti-SS-A/Ro antibody should be considered. Anti-Nikole-1 antibody should be considered for clinically suspected inflammatory myopathies. AC-0: Negative International Consensus on LEI Patterns (https://doi.org/10.1515/kiwg-0304-5766) For additional information, please refer to http://education.MAPPING.ShopSavvy/faq/ESC136 (This link is being provided for informational/ educational purposes only.) Blood BLOOD SPECIMEN / Unknown 09/09/2024 12:38 PM CDT 09/09/2024 12:38 PM CDT Mirza Logan MD CHEMISTRY Final Result [facility] [address] [place] [address], [facility] [address] [place] [address] * (ABNORMAL) COMPLIANCE DRUG ANALYSIS (09/09/2024 12:37 PM CDT) 6-MONOACETYL MORPHINE NEG NEG ng/mL 09/15/2024 10:[address] [facility] AMPHETAMINE URINE NEG <=500 ng/mL 09/15/2024 10:[address] [facility] BARBITURATE URINE NEG <=200 ng/mL 09/15/2024 10:[address] [facility] BENZODIAZEPINE URINE NEG <=100 ng/mL 09/15/2024 10:[address] [facility] BUPRENORPHRINE URINE NEG <=5 ng/mL 08/27 10:[address] [facility] COCAINE METAB URINE NEG <=300 ng/mL 09/15/2024 10:[address] [facility] ETHYLGLUCURONIDE URINE NEG <=250 ng/mL 09/15/2024 10:[address] [facility] FENTANYL URINE NEG <=5 ng/mL 09/15/2024 10:[address] [facility] METHADONE URINE NEG <=300 ng/mL 09/15/2024 10:[address] [facility] OPIATES URINE NEG <=300 ng/mL 09/15/2024 10:[address] [facility] OXYCODONE URINE NEG <=100 ng/mL 09/15/2024 10:[address] [facility] PROPOXYPHENE URINE NEG <=300 ng/mL 09/15/2024 10:[address] [facility] THC 50 URINE NEG <=50 ng/mL 09/15/2024 10:[address] [facility] TRAMADOL POS(A) <=200 ng/mL 09/15/2024 10:[address] [facility] PH URINE 4.8(L) 5.0 - 7.0 09/15/2024 10:08 AM T [facility] CREAT UR 52 >=20 mg/dL 09/15/2024 10:[address] [facility] MASS SPECTROMETRY URINE See Below 09/15/2024 10:[address] [facility] Comment:Acetaminophen, Ateno lol, Furosemide, Lidocaine, Tramadol and Tramadol metabolite present. Urine URINE SPECIMEN / Unknown Non-Blood / Unknown 09/09/2024 12:37 PM CDT 09/09/2024 12:37 PM T Narrative [facility] - 09/15/2024 10:08 AM T Current Outpatient Medications: amLODIPine (NORVASC) 2.5 mg tablet, Take 1 Tablet (2.5 mg) by mouth once daily. HOLD until patient calls aspirin, buffered (ASCRIPTIN) 325 mg buffered tablet, Take 1 tablet by mouth once daily. atenoloL (TENORMIN) 100 mg tablet, Take 1 Tablet (100 mg) by mouth once daily. HOLD until patient calls CALCIUM CARBONATE-VITAMIN D3 500 MG (1,250 MG)-400 UNIT CHEWABLE TAB, 1 daily famotidine (PEPCID) 40 mg tablet, Take 1 Tablet (40 mg) by mouth once daily. HOLD until patient calls ferrous sulfate 325 mg delayed release tablet, Twice weekly furosemide (LASIX) 20 mg tablet, Take 0.5 Tablets (10 mg) by mouth once daily in the morning. HOLD until patient calls gabapentin (NEURONTIN) 100 mg capsule, Take 1 Capsule (100 mg) by mouth two times daily. HOLD until patient calls hydrocortisone 2.5% cream, Apply topically to affected area(s) 3 times daily if needed for Itching. HOLD until patient calls lansoprazole 30 mg capsule, Take 1 Capsule (30 mg) by mouth once daily. HOLD until patient calls levothyroxine 112 mcg tablet, Take 1 Tablet (112 mcg) by mouth once daily. Dose decrease as of 08/19/2024 (shaky on 125 mcg dose) LORazepam (ATIVAN) 0.5 mg tab, Take 1 Tablet (0.5 mg) by mouth every 6 hours if needed for Anxiety. Fill now magnesium glycinate 100 mg magnesium cap, Take 100 mg by mouth four times daily. medication order composer, 2 g three times daily. She takes 1 gm Salt tabs over the counter 2 pills three times daily medication order composer, Take 2 g by mouth 3 times daily. Sodium Chloride 2 mg three times daily MULTIVITAMIN TAB, take 1 tablet by oral route once daily with food potassium chloride (KLOR-CON M20) 20 mEq extended-release tablet (part/cryst), Take 1 Tablet (20 mEq) by mouth two times daily with meals. HOLD until patient calls sulfaSALAzine (AZULFIDINE) 500 mg tablet, 1/2 daily as needed. HOLD until patient calls traMADoL 50 mg tablet, TAKE ONE TABLET (50 MG) BY MOUTH UP TO TWICE DAILY NEEDED; CAUTION: CAUTION: OPIOID - RISK OF OVERDOSE AND ADDICTION - RISK OF OVERDOSE AND ADDICTION. Please schedule appointment before next refill needed triamcinolone 0.025% (ARISTOCORT) 0.025 % ointment, Apply topically to affected area(s) two times daily. No current facility-administered medications for this visit. As of 09/09/2024 Release to patient->Immediate Mirza Logan MD URINE Final Result [facility] [address] [place] [address] [address] [place] [address], [place] * TREPONEMA PALLIDUM (09/09/2024 12:37 PM CDT) TREPONEMA PALLIDUM Non-Reacti ve Non-Reacti ve 09/09/2024 10:57 PM CDT [facility] Blood BLOOD SPECIMEN / Unknown [facility] / Unknown 09/09/2024 12:37 PM CDT 09/09/2024 12:37 PM CDT Mirza Logan MD SEND OUTS Final Result [facility] [address] [place] [address], [place] * UA W/ SEDIMENT EXAM REFLEXED PER CRITERIA (09/09/2024 12:37 PM CDT) COLOR Yellow Yellow Color 09/09/2024 11:21 PM CDT [facility] CLARITY Clear Clear Clarity 09/09/2024 11:21 PM CDT [facility] SPECIFIC GRAVITY,URINE 1.015 1.010, 1.015, 1.020, 1.025 09/09/2024 11:21 PM CDT [facility] PH,URINE 5.5 6.0, 7.0, 8.0, 5.5, 6.5, 7.5, 8.5 09/09/2024 11:21 PM CDT [facility] UROBILINOGEN, QUALITATIVE Normal Normal EU/dl 09/09/2024 11:21 PM CDT [facility] PROTEIN, URINE Negative Negative mg/dL 09/09/2024 11:21 PM CDT [facility] GLUCOSE, URINE Negative Negative mg/dL 09/09/2024 11:21 PM CDT [facility] KETONES,URINE Negative Negative mg/dL 09/09/2024 11:21 PM CDT [facility] BILIRUBIN,URI NE Negative Negative 09/09/2024 11:21 PM CDT [facility] OCCULT BLOOD,URINE Negative Negative 09/09/2024 11:21 PM CDT [facility] NITRITE Negative Negative 09/09/2024 11:21 PM CDT [facility] LEUKOCYTE ESTERASE Negative Negative 09/09/2024 11:21 PM CDT [facility] Urine URINE SPECIMEN / Unknown Non-Blood / Unknown 09/09/2024 12:37 PM CDT 09/09/2024 12:37 PM CDT us Mirza Logan MD URINE Final Result [facility] [address] [place] [address], * (ABNORMAL) XR DXA BONE DENSITY 1 SITE AXIAL AND 1 SITE PERIPHERAL (11/13/2023 11:47 AM CDT) Anatomical Region Laterality Modality LUMBAR SPINE Other Impressions 11/20/2023 1:13 PM CDT Osteopenia. RECOMMENDATIONS: The National Osteoporosis Foundation recommends pharmacologic treatment for patients with T-scores of -2.5 or less, patients with prior history of fragility fractures, or patients with 10-year probability of greater than 3% at hips or greater than 20% of suffering major osteoporotic fractures. Recommend continued optimization of calcium and vitamin D intake through dietary means and/or supplementation and regular exercise. Consider pharmacologic therapy for osteopenia with increased fracture risk. Follow-up bone density reading in 2 years if therapy initiated to assess therapeutic efficacy. Echo Larry PA-C [facility] 11/20/2023 Narrative 11/20/2023 1:13 PM CDT For Patients: Results are automatically released to your [facility] ([employer]) account once available, in compliance with federal regulations. This means that you may see your results before your provider has had a chance to review them. Please allow 2-3 business days for your provider to comment on the results. XR DXA Bone Mineral Density (BMD) EXAM LOCATION: [address] [address] PATIENT NAME: Jordana Nava DATE OF : 1950 EXAM DATE: 11/13/2023 REQUESTING PROVIDER: Drea Escalante MD GENDER AT : female HEIGHT: 5' 0.75 (10/23/2023) WEIGHT: 86 lb (10/23/2023) MENOPAUSAL STATUS: Postmenopausal RACE/ETHNICITY: White RISK FACTORS: Height Loss (2 inches or more), Smoking (current), Weight < 127 lbs., and White Race CURRENT MEDICATION FOR BONE LOSS: NONE INDICATION: Follow-up of existing osteopenia and Post-Menopause COMPARISON DATE(S): 2018 DXA scans are compared to prior studies for a patient only when the two (or more) studies were performed on the same scanner. It is not possible to compare data generated on one scanner to data from another because there are not standards in DXA equipment. This applies even if the two scanners are made by the same tobacco hanger. PROCEDURE: Dual-energy x-ray absorptiometry performed with routine technique. Reporting is completed in the form of a T-score. The T-score represents the standard deviation from peak bone mass based on young healthy adult. A Z-score is used for diagnosis in premenopausal women, and for men under the age of 50. FINDINGS: RESULTS FEMUR Left femoral neck BMD: 0.753 g/cm2 T-Score: - 2.1 Z-Score: + 0.3 Change from prior in 2019: Decrease 12.1%. Right femoral neck BMD: 0.710 g/cm2 T-Score: - 2.4 Z-Score: + 0.0 Change from prior in 2019: Decrease 18.0%. Left hip BMD: 0.727 g/cm2 T-Score: - 2.2 Z-Score: + 0.0 Change from prior in 2019: Decrease 14.1%. Right hip BMD: 0.700 g/cm2 T-Score: - 2.0 Z-Score: + 0.0 Change from prior in 2019: Decrease 13.6%. RESULT FOREARM Left Forearm distal radius BMD: 0.570 g/cm2 T-Score: - 1.7 Z-Score: + 0.3 Change from prior in 2019: Decrease 5.8%. WHO criteria: Normal: T-score at or above -1 SD Osteopenia: T-score between -1.1 and -2.4 SD Osteoporosis: T-score at or below -2.5 SD FRAX RISK CALCULATION (USED FOR OSTEOPENIA ONLY): 10-year probability of major osteoporotic fracture: 12.2%. 10-year probability of hip fracture: 5.2%. Drea Escalante MD DEXA Fi nal Result * (ABNORMAL) LIPID PANEL W REFLEX MEASURED LDL (10/23/2023 4:25 PM CDT) [facility] CHOLESTEROL,TOTAL 257(H) 100 - 199 mg/dL 10/24/2023 1:44 PM CDT [facility] Comment: Cholesterol, Total Reference Ranges Desirable <200 mg/dL Borderline 200-239 mg/dL High >=240 mg/dL TRIGLYCERIDES 128 <150 mg/dL 10/24/2023 1:44 PM CDT [facility] HDL CHOLESTEROL 108 >40 mg/dL 1:44 PM CDT [facility] NON-HDL CHOLESTEROL 149(H) <145 mg/dl 10/24/2023 1:44 PM CDT [facility] CHOL/HDL RATIO 2.38 <4.50 10/24/2023 1:44 PM CDT [facility] LDL CHOLESTEROL 123 <=130 mg/dL 10/24/2023 1:44 PM CDT [facility] VLDL CHOLESTEROL 26 <=30 mg/dL 10/24/2023 1:44 PM CDT [facility] PROVIDER ORDERED STATUS RANDOM 10/24/2023 1:44 PM CDT [facility] Blood BLOOD SPECIMEN / Unknown Butterfly / Unknown 10/23/2023 4:25 PM CDT 10/23/2023 4:27 PM CDT Drea Escalante MD CHEMISTRY Fi nal Result [facility] [address] [place] [id number], * OCCULT BLOOD IFOBT STOOL [[id number]] (09/28/2022 2:57 PM CDT) STOOL BLOOD ,IFOBT Negative Negative 10/04/2022 8:38 AM CDT [facility] Stool STOOL SPECIMEN / Unknown Non-Blood / Unknown 09/28/2022 2:57 PM CDT 10/02/2022 2:57 PM CDT Drea Escalante MD LABORATORY Fi nal Result [facility] [address] [place] [address], * XR MAMMO BILAT SCREENING (09/13/2022 12:12 PM CDT) Anatomical Region Laterality Modality BREASTS, Breast Left, Breast Right Bilateral Mammography Impressions 09/13/2022 2:45 PM CDT There is no radiographic evidence for malignancy. Recommend annual mammograms. MAMMOGRAM ASSESSMENT: ACR 1 Negative PATIENTS: You will also receive a letter with your examination results in an easy to read format. If you have questions about your results, please contact your referring provider. Narrative 09/13/2022 2:45 PM CDT For Patients: As a result of the Century Cures Act, medical imaging exams and procedure reports are released immediately into your electronic medical record. You may view this report before your referring provider. If you have questions, please contact your health care provider. XR MAMMO BILAT SCREENING [[id number]] CLINICAL HISTORY: This is an asymptomatic 72 y.o. patient. INDICATION FOR EXAM: Mammogram Screening. TECHNIQUE: CC & MLO views were obtained. This study was evaluated with the assistance of Computer-Aided Detection. COMPARISON FILM: Yes 01/02/20 [facility] 05/31/15 [facility] [employer] FINDINGS: The breasts are heterogeneously dense, which may obscure small masses. There are no dominant masses, suspicious micro calcifications or areas of architectural distortion. Drea Escalante MD MAMMO Fi nal Result * LC HCV ANTIBODY RFX TO QUANT PCR (09/13/2022 11:40 AM CDT) HCV Ab Non Reactive Non Reactive 09/15/2022 10:07 PM CDT [facility] Blood BLOOD SPECIMEN / Unknown Venipuncture / Unknown 09/13/2022 11:40 AM CDT 09/13/2022 11:49 AM CDT Narrative [facility] ([facility] - 09/15/2022 10:07 PM CDT Performed at: [address] [place] [address] [address] [place], [place] [id number] [employer]: Jaciel Spring MD, Phone: [phone] Drea Escalante MD LABORATORY Fi nal Result [facility] ([facility] [address] [place] [address], from Last 3 Months or Most Recently Relevant to Health Maintenance Insurance [employer] BLUE MR PB ONLY Advance Directives * Full Code (Latest Code Status on File) Date Activated Date Inactivated Comments 11/01/2017 12:59 PM 11/01/2017 7:45 PM Care Teams 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
--- NOTE | 2024-11-10 16:47 | CT_ITS ---
Patient: MICHAEL CRUMP Facility:?[facility] Patient ID:?[id number] Site Patient ID:?[id number]. Site :?1950 Study:?CT-Neck Angio Angio CODES CAMI Wadsworth/ 95CC ISOVUE 370-11/10/2024 5:06:48 PM Ordering Physician:Halle Younger Final Report: DATE: 11/10/2024 CLINICAL HISTORY: Patient with focal neurological deficits. TECHNIQUE: Standard helical CT image acquisition through the head and neck was performed after intravenous contrast bolus enhancement. 2D and 3D MIP images for post- processing were performed and interpreted on an independent workstation and 3D images were permanently archived. COMPARISON: CT same day. FINDINGS: The origins of the great vessels from the aortic arch are patent. The origin of the right vertebral artery is patent. The origin of the left vertebral artery is patent. The common carotid arteries are patent There is a mild (less than 50%) stenosis at the origin of the right internal carotid artery by NASCET criteria. This is caused by calcified plaque with a greater than 2mm residual lumen. There is a mild (less than 50%) stenosis at the origin of the left internal carotid artery by NASCET criteria. This is caused by calcified plaque with a greater than 2mm residual lumen. The rest of the cervical segments of the internal carotid arteries are patent up to their intracranial segments. The intracranial segments of the internal carotid arteries are patent. The left vertebral artery is dominant. The cervical segments of the vertebral arteries are patent. The intracranial segments of the vertebral arteries are patent. The middle cerebral arteries are normal without aneurysm or proximal occlusion identified. The anterior cerebral arteries are normal without aneurysm or proximal occlusion identified. The anterior communicating artery is well visualized and appears normal. The basilar artery is normal without aneurysm or occlusion. The posterior cerebral arteries are normal without aneurysm or proximal occlusion. The visualized lung apices demonstrate emphysematous changes. The thyroid gland is unremarkable. The soft tissues of the neck are unremarkable. There are degenerative changes in the cervical spine. IMPRESSION: 1. No proximal intracranial large vessel occlusion. 2. Mild (less than 50%) stenosis at the origin of the right internal carotid artery by NASCET criteria. This is caused by calcified plaque with a greater than 2mm residual lumen. 3. Mild (less than 50%) stenosis at the origin of the left internal carotid artery by NASCET criteria. This is caused by calcified plaque with a greater than 2mm residual lumen. Please note that all CT scans at this facility use dose modulation, iterative reconstruction, and/or weight-based dosing when appropriate to reduce radiation dose to as low as reasonably achievable. Dictated by Fernanda Finn MD @ 11/10/2024 10:37:57 PM (Electronic Signature)
--- NOTE | 2024-11-10 16:47 | CT_ITS ---
Patient: MICHAEL CRUMP Facility:?[facility] Patient ID:?[id number] Site Patient ID:?[id number]. Site :?1950 Study:?CT-Head Angio CODE STROKE W/ 95CC ISOVUE 370-11/10/2024 5:06:22 PM Ordering Physician:Halle Younger Final Report: DATE: 11/10/2024 CLINICAL HISTORY: Patient with focal neurological deficits. TECHNIQUE: Standard helical CT image acquisition through the head and neck was performed after intravenous contrast bolus enhancement. 2D and 3D MIP images for post- processing were performed and interpreted on an independent workstation and 3D images were permanently archived. COMPARISON: CT same day. FINDINGS: The origins of the great vessels from the aortic arch are patent. The origin of the right vertebral artery is patent. The origin of the left vertebral artery is patent. The common carotid arteries are patent There is a mild (less than 50%) stenosis at the origin of the right internal carotid artery by NASCET criteria. This is caused by calcified plaque with a greater than 2mm residual lumen. There is a mild (less than 50%) stenosis at the origin of the left internal carotid artery by NASCET criteria. This is caused by calcified plaque with a greater than 2mm residual lumen. The rest of the cervical segments of the internal carotid arteries are patent up to their intracranial segments. The intracranial segments of the internal carotid arteries are patent. The left vertebral artery is dominant. The cervical segments of the vertebral arteries are patent. The intracranial segments of the vertebral arteries are patent. The middle cerebral arteries are normal without aneurysm or proximal occlusion identified. The anterior cerebral arteries are normal without aneurysm or proximal occlusion identified. The anterior communicating artery is well visualized and appears normal. The basilar artery is normal without aneurysm or occlusion. The posterior cerebral arteries are normal without aneurysm or proximal occlusion. The visualized lung apices demonstrate emphysematous changes. The thyroid gland is unremarkable. The soft tissues of the neck are unremarkable. There are degenerative changes in the cervical spine. IMPRESSION: 1. No proximal intracranial large vessel occlusion. 2. Mild (less than 50%) stenosis at the origin of the right internal carotid artery by NASCET criteria. This is caused by calcified plaque with a greater than 2mm residual lumen. 3. Mild (less than 50%) stenosis at the origin of the left internal carotid artery by NASCET criteria. This is caused by calcified plaque with a greater than 2mm residual lumen. Please note that all CT scans at this facility use dose modulation, iterative reconstruction, and/or weight-based dosing when appropriate to reduce radiation dose to as low as reasonably achievable. Dictated by Fernanda Finn MD @ 11/10/2024 10:37:09 PM (Electronic Signature)
--- NOTE | 2024-11-10 16:47 | CRLHL7_ITS ---
For Patients: As a result of the Century Cures Act, medical imaging exams and procedure reports are released immediately into your electronic medical record. You may view this report before your referring provider. If you have questions, please contact your health care provider. INDICATION: Altered mental status, left-sided weakness TECHNIQUE: Noncontrast axial CT of the head. Coronal and sagittal reformats. Bone and soft tissue algorithms. COMPARISON: CT head 03/03/2023 FINDINGS: Faint confluent hypoattenuation and loss of hirsch-white matter differentiation throughout the right frontotemporoparietal lobes, with associated sulcal effacement compatible with evolving MCA territory infarct. No hemorrhagic transformation. No ventricular effacement or midline shift. Suggestion of low-attenuation extra-axial collection on the axial reformatted series 5 is not apparent on the original axial series 3, and favored artifactual. Unremarkable midline structures. Calcific intracranial atherosclerotic plaquing. Intact calvarium. Clear paranasal sinuses and mastoid air cells. Right lens implant. IMPRESSION: 1. Acute-appearing large right MCA territory infarct. No hemorrhagic transformation. No midline shift or herniation. Exam findings were discussed with Dr. Key at 5:15 p.m. on 11/10/2024. Please note that all CT scans at this facility use dose modulation, iterative reconstruction, and/or weight-based dosing when appropriate to reduce radiation dose to as low as reasonably achievable. Dictated by Mesha Schultz MD @ 11/10/2024 5:24:14 PM (Electronically Signed)
--- NOTE | 2024-11-10 16:57 | ED.GENADULT ---
HPI - General Adult General Date Seen: 11/10/24 <Aren Hanna MD - Last Filed: 11/13/24 10:57> Chief complaint: Altered Mental Status <Aren Hanna MD - Last Filed: 11/13/24 10:57> Stated complaint: Stroke <Aren Hanna MD - Last Filed: 11/13/24 10:57> Time Seen by Provider: 11/10/24 16:46 <Aren Hanna MD - Last Filed: 11/13/24 10:57> History of Present Illness HPI narrative: This is a 74-year-old female brought to the ER today by EMS for evaluation altered mental status and concern for left-sided weakness or neglect. A pre-hospital code stroke was requested by EMS while they were in route. History from EMS providers is somewhat limited. They report that the patient was last known well yesterday and was apparently sending text messages to her family last night sometime during the [employer] game. Today her family came to check on her and noted to be confused and seemingly weak on the left side of her body. 911 was called. Her daughter was quite alarmed by the patient's presentation and was anxious so could really give great details about the patient's medical history, current meds. EMS reports that blood sugar was normal at about 121. Blood pressure was normal. She was tachycardic to 140. She does have drowsiness, but responds to some commands. Patient is not answering questions for me. I saw her quickly in the ER hallway and got her straight to CT scan as part of our stroke team activation. We do not have a lot of medical records for this patient. She was last seen here in March 2023 and apparently had a history of radiofrequency ablation of nerves to her left arm apparently for left upper extremity radiculopathy. She presented for palpitations. Per her [facility] medical record she has a history of sensorineural hearing loss, hypertension, basal cell carcinoma of her skin, hypothyroidism, hypercholesterolemia, hypomagnesemia and hypokalemia, collagenous colitis microscopic colitis, GERD, delusions and paranoia, cystocele, tobacco use, anxiety Current medication list per [facility] include Acetaminophen Amlodipine Aspirin 325 Calcium/vitamin-D Famotidine Ferrous sulfate Furosemide Gabapentin lansoprazole Synthroid Magnesium glycinate Multivitamins Potassium chloride Sulfasalazine Tramadol <Aren Hanna MD - Last Filed: 11/13/24 10:57> This is a 74-year-old female brought to the ER today by EMS for evaluation altered mental status and concern for left-sided weakness or neglect. A pre-hospital code stroke was requested by EMS while they were in route. History from EMS providers is somewhat limited. They report that the patient was last known well yesterday and was apparently sending text messages to her family last night sometime during the [employer] game. Today her family came to check on her and noted to be confused and seemingly weak on the left side of her body. 911 was called. Her daughter was quite alarmed by the patient's presentation and was anxious so could really give great details about the patient's medical history, current meds. EMS reports that blood sugar was normal at about 121. Blood pressure was normal. She was tachycardic to 140. She does have drowsiness, but responds to some commands. Patient is not answering questions for me. I saw her quickly in the ER hallway and got her straight to CT scan as part of our stroke team activation. We do not have a lot of medical records for this patient. She was last seen here in March 2023 and apparently had a history of radiofrequency ablation of nerves to her left arm apparently for left upper extremity radiculopathy. She presented for palpitations. Per her [facility] medical record she has a history of sensorineural hearing loss, hypertension, basal cell carcinoma of her skin, hypothyroidism, hypercholesterolemia, hypomagnesemia and hypokalemia, collagenous colitis microscopic colitis, GERD, delusions and paranoia, cystocele, tobacco use, anxiety Current medication list per [facility] include Acetaminophen Amlodipine Aspirin 325 Calcium/vitamin-D Famotidine Ferrous sulfate Furosemide Gabapentin lansoprazole Synthroid Magnesium glycinate Multivitamins Potassium chloride Sulfasalazine Tramadol I did see this patient after taking over care from Dr. Hanna, saw her when she was back from CT scanner. Her daughter and son-in-law our in the room, she would attempt to speak to them but really did not interact with me. She is alert, breathing easily on room air, maintaining her own airway. She was looking towards the right, really seemed like she was having left-sided neglect. I could not get her to follow any of my commands nor answer any of my questions. Speech certainly seem dysarthric at times. <Chely Angela MD - Last Filed: 11/10/24 23:37> Related Data Home medications: Home Medications ?Medication ?Instructions ?Recorded ?Confirmed amlodipine 2.5 mg tablet 2.5 mg PO BID 03/03/23 11/11/24 famotidine 40 mg tablet 40 mg PO DAILY 03/03/23 11/11/24 furosemide 20 mg tablet 10 mg PO DAILY 03/03/23 11/11/24 lansoprazole 30 mg capsule,delayed 30 mg PO DAILY 03/03/23 11/11/24 release levothyroxine 112 mcg tablet 112 mcg PO DAILY 03/03/23 11/11/24 potassium chloride 20 mEq 20 meq PO BID 03/03/23 11/11/24 tablet,extended release(part/cryst) aspirin 325 mg tablet,delayed 325 mg PO DAILY 11/11/24 11/11/24 release calcium 500 mg (as 1 tab PO DAILY 11/11/24 11/11/24 carbonate)-vitamin D3 10 mcg (400 unit) tablet (Calcium 500 + D) ferrous sulfate 325 mg (65 mg 325 mg PO 2XW 11/11/24 11/11/24 iron) tablet (Feosol) losartan 50 mg tablet 50 mg PO DAILY 11/11/24 11/11/24 magnesium glycinate 100 mg (as 100 mg PO QID 11/11/24 11/11/24 glycinate) tablet (Mag Glycinate) multivitamin (Daily Multi-Vitamin 1 tab PO DAILY 11/11/24 11/11/24 tablet) sodium chloride 1,000 mg soluble 2,000 mg PO TID 11/11/24 11/11/24 tablet sulfasalazine 500 mg tablet 250 mg PO BID 11/11/24 11/11/24 tramadol 50 mg tablet 50 mg PO BID PRN 11/11/24 11/11/24 <Aren Hanna MD - Last Filed: 11/13/24 10:57> Allergies/adverse reactions: Allergies Allergy/AdvReac Type Severity Reaction Status Date / Time atorvastatin (From Lipitor) Allergy Verified 09/11/23 11:25 doxazosin (From Cardura) Allergy Verified 09/11/23 11:25 lisinopril Allergy Verified 09/11/23 11:25 metoprolol Allergy Verified 09/11/23 11:25 neomycin Allergy Verified 09/11/23 11:25 Penicillins Allergy Verified 09/11/23 11:25 sulfamethoxazole (From Allergy Verified 09/11/23 11:25 Bactrim) trimethoprim (From Bactrim) Allergy Verified 09/11/23 11:25 <Aren Hanna MD - Last Filed: 11/13/24 10:57> Review of Systems Status of ROS: Reports: unobtainable due to medical condition <Chely Angela MD - Last Filed: 11/10/24 23:37> [facility] Medical History: Medical History Collagenous colitis ?K52.831 - Collagenous colitis (ICD-10) Hyperlipidemia ?E78.5 - Hyperlipidemia, unspecified (ICD-10) Bilateral lower extremity edema ?R60.0 - Localized edema (ICD-10) Paranoia ?F22 - Delusional disorders (ICD-10) Anxiety ?F41.9 - Anxiety disorder, unspecified (ICD-10) Low back pain ?M54.50 - Low back pain, unspecified (ICD-10) Osteopenia ?M85.80 - Other specified disorders of bone density and structure, unspecified site (ICD-10) Hypothyroid ?E03.9 - Hypothyroidism, unspecified (ICD-10) Tobacco abuse ?Z72.0 - Tobacco use (ICD-10) PAD (peripheral artery disease) ?I73.9 - Peripheral vascular disease, unspecified (ICD-10) GERD (gastroesophageal reflux disease) ?K21.9 - Gastro-esophageal reflux disease without esophagitis (ICD-10) Hypertension ?I10 - Essential (primary) hypertension (ICD-10) Chilblains ?T69.1XXA - Chilblains, initial encounter (ICD-10) <Aren Hanna MD - Last Filed: 11/13/24 10:57> Social History: Social History What is your current living situation?: unable to answer Problems where you live: unable to answer Problems where you live details: Unable to answer In the past 12 months, utilities in danger of being shut off: unable to answer In past 12 months, lack of transportation kept you from medical appts, meetings, work, or getting things needed for daily living: unable to answer In the past 12 mos, have been you worried that your food would run out before you had money to buy more?: unable to answer In the past 12 mos, the food you bought just didn't last and you didn't have money to buy more?: unable to answer Smoking Status: Current every day smoker Do you use any of these nicotine containing products: E-Cigarettes Second hand tobacco smoke exposure: Yes How often do you have a drink containing alcohol: never AUDIT-C Alcohol total score: 0 Non-prescribed substance use: denies use Caffeine: No How often does anyone, including family, friends and others, physically hurt you: unable to answer How often does anyone, including family, friends and others, insult or talk down to you: unable to answer How often does anyone, including family, friends and others, threaten you with harm: unable to answer How often does anyone, including family, friends and others, scream or curse at you: unable to answer <Aren Hanna MD - Last Filed: 11/13/24 10:57> Exam Narrative: Exam Narrative: Primary Survey: A- patent. No stridor. Not opening her eyes or answering questions to my voice but does open revised physical touch. B- breathing easily. Lung sounds clear and equal. Oxygen saturation normal on room air C- no active bleeding. Heart rate tachycardic, appears to be sinus tach on the EMS monitor Blood pressure stable. D- drowsy but awakens sitting up in her EMS gurney. GCS 14. Patient moved immediately to head CT scan. <Aren Hanna MD - Last Filed: 11/13/24 10:57> Const: Vital Signs, click to edit/add: Vital Signs - 24 hr 11/10/24 17:06 11/10/24 17:13 11/10/24 17:14 Temperature 100 F H Pulse Rate Pulse Rate [Pulse Oximeter] 121 H Respiratory Rate 14 13 Blood Pressure 115/91 H Blood Pressure [Le ft Upper Arm] 131/99 H Pulse Oximetry 98 Oxygen Delivery Me thod Room Air 11/10/24 17:15 11/10/24 17:20 11/10/24 17:21 Temperature Pulse Rate 117 H Pulse Rate [Pulse Oximeter] 117 H Respiratory Rate 15 20 20 Blood Pressure 117/89 Blood Pressure [Le ft Upper Arm] Pulse Oximetry 98 Oxygen Delivery Me thod Room Air 11/10/24 17:30 11/10/24 17:30 11/10/24 17:32 Temperature Pulse Rate Pulse Rate [Pulse Oximeter] 110 H Respiratory Rate 17 11 L 11 L Blood Pressure 121/95 H Blood Pressure [Le ft Upper Arm] Pulse Oximetry 98 Oxygen Delivery Me thod 11/10/24 17:40 11/10/24 17:41 11/10/24 17:45 Temperature Pulse Rate Pulse Rate [Pulse Oximeter] 107 H Respiratory Rate 20 20 17 Blood Pressure 125/98 H Blood Pressure [Le ft Upper Arm] Pulse Oximetry 98 Oxygen Delivery Me thod Room Air 11/10/24 17:50 11/10/24 17:52 11/10/24 18:00 Temperature Pulse Rate Pulse Rate [Pulse Oximeter] 102 H Respiratory Rate 24 24 27 H Blood Pressure 127/77 Blood Pressure [Le ft Upper Arm] 127/77 Pulse Oximetry 98 Oxygen Delivery Me thod Room Air 11/10/24 18:02 11/10/24 18:03 11/10/24 18:08 Temperature Pulse Rate Pulse Rate [Pulse Oximeter] Respiratory Rate 20 21 Blood Pressure 117/84 Blood Pressure [Le ft Upper Arm] Pulse Oximetry 93 Oxygen Delivery Dc thod Room Air 11/10/24 18:15 Temperature Pulse Rate Pulse Rate [Pulse Oximeter] Respiratory Rate 16 Blood Pressure Blood Pressure [Le ft Upper Arm] Pulse Oximetry Oxygen Delivery Me thod <Aren Hanna MD - Last Filed: 11/13/24 10:57> Vital Signs, click to edit/add: Vital Signs - 24 hr 11/10/24 17:06 11/10/24 17:13 11/10/24 17:14 Temperature 100 F H Pulse Rate Pulse Rate [Pulse Oximeter] 121 H Respiratory Rate 14 13 Blood Pressure 115/91 H Blood Pressure [Le ft Upper Arm] 131/99 H Pulse Oximetry 98 Oxygen Delivery Me thod Room Air 11/10/24 17:15 11/10/24 17:20 11/10/24 17:21 Temperature Pulse Rate 117 H Pulse Rate [Pulse Oximeter] 117 H Respiratory Rate 15 20 20 Blood Pressure 117/89 Blood Pressure [Le ft Upper Arm] Pulse Oximetry 98 Oxygen Delivery Me od Room Air 11/10/24 17:30 11/10/24 17:30 11/10/24 17:32 Temperature Pulse Rate Pulse Rate [Pulse Oximeter] 110 H Respiratory Rate 17 11 L 11 L Blood Pressure 121/95 H Blood Pressure [Le ft Upper Arm] Pulse Oximetry 98 Oxygen Delivery Dc thod 11/10/24 17:40 11/10/24 17:41 11/10/24 17:45 Temperature Pulse Rate Pulse Rate [Pulse Oximeter] 107 H Respiratory Rate 20 20 17 Blood Pressure 125/98 H Blood Pressure [Le ft Upper Arm] [facility]ulse Oximetry [facility] 11/10/24 17:50 11/10/24 17:52 11/10/24 18:00 Temperature Pulse Rate Pulse Rate [Pulse Oximeter] 102 H Respiratory Rate 24 24 27 H Blood Pressure 127/77 Blood Pressure [Le ft Upper Arm] 127/77 Pulse Oximetry 98 [facility] 11/10/24 18:02 11/10/24 18:03 11/10/24 18:08 Temperature Pulse Rate Pulse Rate [Pulse Oximeter] Respiratory Rate 20 21 Blood Pressure 117/84 Blood Pressure [Le ft Upper Arm] Pulse Oximetry 93 [facility] 11/10/24 18:15 Temperature Pulse Rate Pulse Rate [Pulse Oximeter] Respiratory Rate 16 Blood Pressure Blood Pressure [Le ft Upper Arm] Pulse Oximetry Oxygen Delivery Me thod Patient is seen in exam room 7, she is in the bed. Her left arm is talked up almost underneath her body, wrist seems hyperflexed. I a.m. able to move her arm out and do range of motion, no increased tone. Certainly no clonus. Her hips and knees are flexed. She does not follow commands with moving him. Right arm is along her body, again not moving it but no increased tone. I note no tremors. She seems to be looking to the right, pupils are equal round, sclera clear. When she does talk, her mouth seems symmetric but speech is sometimes slurred or dysarthric. She really is not engaging in conversation or following commands for me. Do note that she will turn her head further to the right to talk to her daughter. Initially the monitor looked like it was atrial fibrillation but her EKG looks like there is definite P-waves, think this is sinus tachycardia with frequent premature atrial contractions. Lungs sound clear the best my ability, not really following commands for deep breathing. CV is fast, sounds somewhat irregular at times, no murmur. Abdomen is soft, do not fully masses, does not seem like she is tender. She is slender, appears frail. <Chely Angela MD - Last Filed: 11/10/24 23:37> Documenting provider has reviewed patient's vital signs: yes <Chely Angela MD - Last Filed: 11/10/24 23:37> Course Course ED Course: Patient initially evaluated rapidly in the hallway the ER taken immediately to CT scan. I did not have time to complete a comprehensive NIH stroke scale. Stroke team activation was initiated. Head CT and CT angiograms were ordered I reviewed CT imaging as the images came off the scanner. I am concerned about edema in the right MCA territories, possibly a subacute infarct. Discussed briefly with Dr. Jacobo, stroke Neurology. He will call back once neuro imaging images are available. Signed out to Dr. Dowd. Received another phone call from Dr. Owens. He agrees that there is edema in the right MCA territory indicating subacute infarct. Small amount of hemorrhagic transformation. <Aren Hanna MD - Last Filed: 11/13/24 10:57> Reevaluation(s) Time of Reevaluation #1: 19:02 <Chely Angela MD - Last Filed: 11/10/24 23:37> Reevaluation #1: Did review with daughter and grandson who is now here that the heart enzyme is elevated as well. I have talked to Cardiology. Patient is not a candidate for any interventions such as angiography, angiograms. Her stroke really takes precedence at this time. Her outlook from the stroke may ultimately be poor. More will be known in the next 24-48 hours, particularly if she does start developing brain edema. Did subsequently talk to the hospitalist Lizet Patel. We are going to complete the cervical spine CT, will do chest CT as patient could have aspiration pneumonia. Awaiting urinalysis as well. Will have nursing staff place catheter after talking to the hospitalist. She does accept. <Chely Angela MD - Last Filed: 11/10/24 23:37> Consultations Consultation #1: Have spent the last [address] with Radiology at 5:18 p.m., called let me know that there was acute large right MCA distribution stroke. No midline shift. Dr. Casillas called right after that. He thinks that he sees some small petechial hemorrhage within the infarct. He does believe the patient can stay here but she is at risk for malignant edema. Her survival from ligament edema would be low and they would only recommend medical management. He does not disagree with my concerns of lack of meaningful recovery to independent living. Though be months of rehab for sure, she certainly will have some deficits, he feels 100% assured on that. He recommends aspirin 300 mg rectally. MR tomorrow morning and if MRI is not available until later, CT in the morning for monitoring daily for the next 2 days, home it this CT tomorrow if the MR as in the morning. They will follow. She does not have any embolus seen any large vessel, no large vessel occlusion and thus is not any candidate for any lytic therapy. I will need to talk to the hospitalist. I have spent significant time talking to family. They do believe that if she had significant illness or injury and did not have good outlook, that she would not want things done. Will need to try to see if she does have an advanced directive in her chart. I have reviewed all of this with them, did discuss the brain edema. If this does develop, they may want to consider going to comfort cares, we did discuss this. I am going to give them some time to review all of this themselves, think about it, will return to answer questions. Her lactate is come back elevated. Will order maintenance fluids as we do not want increased risk of brain edema. Will also do the 300 mg rectal aspirin. We discussed avoidance of oral intake at this point is we do not know if she is safe to swallow. <Chely Angela MD - Last Filed: 11/10/24 23:37> Time: 17:19 <Chely Angela MD - Last Filed: 11/10/24 23:37> Consultation #2: Have contacted Cardiology and spoke with Dr. Purdy from [facility]. Reviewed patient's current situation with the left MCA territory infarct. We reviewed the elevated troponin, she did review the EKG, agrees that this is an atrial tachycardia with PACs. She is not sure why the trope is elevated, if there is supply demand issue or tachycardic driven. She states patient had a normal echo last year in November outside of [id number] tricuspid regurgitation. Patient has not had any prior ischemic evaluation. Given patient's stroke issues, she would just trend this right now. <Chely Angela MD - Last Filed: 11/10/24 23:37> Time: 18:42 <Chely Angela MD - Last Filed: 11/10/24 23:37> Vital Signs Vital signs: Initial Vital Signs Temperature 100 F H 11/10/24 17:06 Temperature Source Temporal Artery Scan 11/10/24 17:06 Pulse Rate 121 H 11/10/24 17:06 Respiratory Rate 14 11/10/24 17:06 Blood Pressure 131/99 H 11/10/24 17:06 Blood Pressure Mean 109 H 11/10/24 17:06 Blood Pressure Position Supine 11/10/24 17:06 Oxygen Delivery Method Room Air 11/10/24 17:06 Vital Signs Temperature 100 F H 11/10/24 17:06 Pulse Rate 121 H 11/10/24 17:06 Respiratory Rate 14 11/10/24 17:06 Blood Pressure 131/99 H 11/10/24 17:06 Oxygen Delivery Method Room Air 11/10/24 17:06 Temperature 97.5 F L 11/11/24 23:35 Pulse Rate 141 H 11/12/24 00:13 Respiratory Rate 16 11/12/24 23:00 Blood Pressure 83/49 L 11/12/24 00:13 Pulse Oximetry 98 11/11/24 23:35 Oxygen Delivery Method Room Air 11/11/24 23:35 <Aren Hanna MD - Last Filed: 11/13/24 10:57> Initial Vital Signs Temperature 100 F H 11/10/24 17:06 Temperature Source Temporal Artery Scan 11/10/24 17:06 Pulse Rate 121 H 11/10/24 17:06 Respiratory Rate 14 11/10/24 17:06 Blood Pressure 131/99 H 11/10/24 17:06 Blood Pressure Mean 109 H 11/10/24 17:06 Blood Pressure Position Supine 11/10/24 17:06 Oxygen Delivery Method Room Air 11/10/24 17:06 Vital Signs Temperature 100 F H 11/10/24 17:06 Pulse Rate 121 H 11/10/24 17:06 Respiratory Rate 14 11/10/24 17:06 Blood Pressure 131/99 H 11/10/24 17:06 Oxygen Delivery Method Room Air 11/10/24 17:06 Temperature 97.5 F L 11/11/24 23:35 Pulse Rate 141 H 11/12/24 00:13 Respiratory Rate 16 11/12/24 23:00 Blood Pressure 83/49 L 11/12/24 00:13 Pulse Oximetry 98 11/11/24 23:35 Oxygen Delivery Method Room Air 11/11/24 23:35 <Chely Angela MD - Last Filed: 11/10/24 23:37> Medications Administered Medications: Discontinued Medications Generic Name Dose Route Start Last Admin Trade Name Freq PRN Reason Stop Dose Admin Aspirin 300 mg 11/10/24 17:50 11/10/24 18:02 Aspirin 300 Mg Supp [place] 11/10/24 17:51 300 mg ONCE ONE Administration Enoxaparin Sodium 40 mg 11/11/24 18:00 11/11/24 18:32 Enoxaparin 40 Mg/0.4 Ml Inj SUBCUT 40 mg Q12H ERIKA Administration Fentanyl 1 patch 11/12/24 01:00 11/12/24 01:21 Fentanyl 12 Mcg/Hr Patch TRANSDERMA 1 patch Q72H ERIKA Administration Hyoscyamine 0.125 - 0.25 mg 11/12/24 00:40 11/12/24 15:50 Hyoscyamine Sulfate 0.125 Mg Tab SUBLINGUAL 0.125 mg Q4H PRN Administration To decrease secretions Sodium Chloride 1,000 mls @ 75 mls/hr 11/10/24 17:50 11/11/24 19:14 0.9 % Sodium Chloride 1000 Ml IV Infused .[id number] ERIKA Infusion Ceftriaxone Sodium 1 gm/ 100 mls @ 200 mls/hr 11/10/24 21:13 11/11/24 19:14 Sodium Chloride IVPB Not Given Q24H ERIKA Sodium Chloride 1,000 mls @ 75 mls/hr 11/10/24 21:13 11/12/24 01:00 0.9 % Sodium Chloride 1000 Ml IV Infused .[id number] ERIKA Infusion Acetaminophen 1,000 mg in 100 mls @ 400 mls/hr 11/10/24 21:13 11/11/24 19:14 Acetaminophen Inj IVPB Infused Q6H PRN Infusion Fever Levofloxacin/Dextrose 500 mg in 100 mls @ 100 mls/hr 11/10/24 21:21 11/11/24 19:14 Levofloxacin 500 Mg/100 Ml D5w IVPB 11/10/24 22:20 Infused ONCE ONE Infusion Sodium Chloride 250 mls @ 250 mls/hr 11/11/24 22:36 11/11/24 23:46 0.9 % Sodium Chloride 250 Ml IV 11/11/24 23:35 Infused .Q1H ONE Infusion Sodium Chloride 250 mls @ 250 mls/hr 11/11/24 23:25 11/12/24 01:02 0.9 % Sodium Chloride 250 Ml IV 11/12/24 00:24 Infused .Q1H ONE Infusion Lidocaine 1 patch 11/11/24 12:30 11/12/24 12:41 Lidocaine 5% Patch TRANSDERMA 1 patch Q24H ERIKA Administration Protocol Lorazepam 0.5 mg 11/11/24 23:24 11/11/24 23:35 Lorazepam 2 Mg/Ml Inj IVP 11/11/24 23:25 0.5 mg ONCE ONE Administration Lorazepam 0.5 - 2 mg 11/12/24 00:40 11/12/24 14:07 Lorazepam 2 Mg/Ml Inj IVP 2 mg Q1H PRN Administration Lorazepam 0.5 - 2 mg 11/12/24 14:36 11/12/24 22:39 Lorazepam 2 Mg/Ml Inj IVP 2 mg Q1H PRN Administration Metoprolol Tartrate 5 mg 11/11/24 11:19 11/11/24 11:52 Metoprolol Tartrate 1 Mg/Ml Inj IVP 11/11/24 11:20 5 mg ONCE ONE Administration Metoprolol Tartrate 2.5 mg 11/11/24 13:00 11/11/24 13:56 Metoprolol Tartrate 1 Mg/Ml Inj IVP 2.5 mg Q6H ERIKA Administration Metoprolol Tartrate 2.5 mg 11/11/24 17:28 11/11/24 17:36 Metoprolol Tartrate 1 Mg/Ml Inj IVP 2.5 mg BID PRN Administration Metoprolol Tartrate 2.5 mg 11/11/24 18:14 11/11/24 18:39 Metoprolol Tartrate 1 Mg/Ml Inj IVP 2.5 mg Q6H ERIKA Administration Metoprolol Tartrate 2.5 mg 11/11/24 18:39 11/12/24 00:15 Metoprolol Tartrate 1 Mg/Ml Inj IVP Not Given Q6H ERIKA Morphine Sulfate 2 mg 11/11/24 07:19 11/12/24 00:33 Morphine 2 Mg/Ml Inj IVP 2 mg Q2H PRN Administration Morphine Sulfate 1 - 10 mg 11/12/24 00:40 11/13/24 01:42 Morphine 2 Mg/Ml Inj IVP 2 mg Q1H PRN Administration Nicotine 1 patch 11/11/24 11:45 11/12/24 12:41 Nicotine 7 Mg Patch TRANSDERMA 1 patch Q24H ERIKA Administration Pantoprazole Sodium 40 mg 11/11/24 09:00 11/11/24 11:53 Pantoprazole Sodium 40 Mg Inj IVP 40 mg DAILY ERIKA Administration Scopolamine 1 patch 11/12/24 12:15 11/12/24 12:40 Scopolamine 1 Mg/3 Day Patch TRANSDERMA 1 patch Q72H ERIKA Administration Sodium Chloride 5 ml 11/10/24 21:13 11/12/24 22:36 Sodium Chloride 0.9 % (Flush) 10 Ml Syringe IVF 5 ml .FLUSH PRN Administration Sodium Chloride 5 ml 11/11/24 09:00 11/12/24 20:08 Sodium Chloride 0.9 % (Flush) 10 Ml Syringe IVF 5 ml BID ERIKA Administration <Aren Hanna MD - Last Filed: 11/13/24 10:57> Discontinued Medications Generic Name Dose Route Start Last Admin Trade Name Freq PRN Reason Stop Dose Admin Aspirin 300 mg 11/10/24 17:50 11/10/24 18:02 Aspirin 300 Mg Supp [place] 11/10/24 17:51 300 mg ONCE ONE Administration Enoxaparin Sodium 40 mg 11/11/24 18:00 11/11/24 18:32 Enoxaparin 40 Mg/0.4 Ml Inj SUBCUT 40 mg Q12H ERIKA Administration Fentanyl 1 patch 11/12/24 01:00 11/12/24 01:21 Fentanyl 12 Mcg/Hr Patch TRANSDERMA 1 patch Q72H ERIKA Administration Hyoscyamine 0.125 - 0.25 mg 11/12/24 00:40 11/12/24 15:50 Hyoscyamine Sulfate 0.125 Mg Tab SUBLINGUAL 0.125 mg Q4H PRN Administration To decrease secretions Sodium Chloride 1,000 mls @ 75 mls/hr 11/10/24 17:50 11/11/24 19:14 0.9 % Sodium Chloride 1000 Ml IV Infused .[id number] ERIKA Infusion Ceftriaxone Sodium 1 gm/ 100 mls @ 200 mls/hr 11/10/24 21:13 11/11/24 19:14 Sodium Chloride IVPB Not Given Q24H ERIKA Sodium Chloride 1,000 mls @ 75 mls/hr 11/10/24 21:13 11/12/24 01:00 0.9 % Sodium Chloride 1000 Ml IV Infused .[id number] ERIKA Infusion Acetaminophen 1,000 mg in 100 mls @ 400 mls/hr 11/10/24 21:13 11/11/24 19:14 Acetaminophen Inj IVPB Infused Q6H PRN Infusion Fever Levofloxacin/Dextrose 500 mg in 100 mls @ 100 mls/hr 11/10/24 21:21 11/11/24 19:14 Levofloxacin 500 Mg/100 Ml D5w IVPB 11/10/24 22:20 Infused ONCE ONE Infusion Sodium Chloride 250 mls @ 250 mls/hr 11/11/24 22:36 11/11/24 23:46 0.9 % Sodium Chloride 250 Ml IV 11/11/24 23:35 Infused .Q1H ONE Infusion Sodium Chloride 250 mls @ 250 mls/hr 11/11/24 23:25 11/12/24 01:02 0.9 % Sodium Chloride 250 Ml IV 11/12/24 00:24 Infused .Q1H ONE Infusion Lidocaine 1 patch 11/11/24 12:30 11/12/24 12:41 Lidocaine 5% Patch TRANSDERMA 1 patch Q24H ERIKA Administration Protocol Lorazepam 0.5 mg 11/11/24 23:24 11/11/24 23:35 Lorazepam 2 Mg/Ml Inj IVP 11/11/24 23:25 0.5 mg ONCE ONE Administration Lorazepam 0.5 - 2 mg 11/12/24 00:40 11/12/24 14:07 Lorazepam 2 Mg/Ml Inj IVP 2 mg Q1H PRN Administration Lorazepam 0.5 - 2 mg 11/12/24 14:36 11/12/24 22:39 Lorazepam 2 Mg/Ml Inj IVP 2 mg Q1H PRN Administration Metoprolol Tartrate 5 mg 11/11/24 11:19 11/11/24 11:52 Metoprolol Tartrate 1 Mg/Ml Inj IVP 11/11/24 11:20 5 mg ONCE ONE Administration Metoprolol Tartrate 2.5 mg 11/11/24 13:00 11/11/24 13:56 Metoprolol Tartrate 1 Mg/Ml Inj IVP 2.5 mg Q6H ERIKA Administration Metoprolol Tartrate 2.5 mg 11/11/24 17:28 11/11/24 17:36 Metoprolol Tartrate 1 Mg/Ml Inj IVP 2.5 mg BID PRN Administration Metoprolol Tartrate 2.5 mg 11/11/24 18:14 11/11/24 18:39 Metoprolol Tartrate 1 Mg/Ml Inj IVP 2.5 mg Q6H ERIKA Administration Metoprolol Tartrate 2.5 mg 11/11/24 18:39 11/12/24 00:15 Metoprolol Tartrate 1 Mg/Ml Inj IVP Not Given Q6H ERIKA Morphine Sulfate 2 mg 11/11/24 07:19 11/12/24 00:33 Morphine 2 Mg/Ml Inj IVP 2 mg Q2H PRN Administration Morphine Sulfate 1 - 10 mg 11/12/24 00:40 11/13/24 01:42 Morphine 2 Mg/Ml Inj IVP 2 mg Q1H PRN Administration Nicotine 1 patch 11/11/24 11:45 11/12/24 12:41 Nicotine 7 Mg Patch TRANSDERMA 1 patch Q24H ERIKA Administration Pantoprazole Sodium 40 mg 11/11/24 09:00 11/11/24 11:53 Pantoprazole Sodium 40 Mg Inj IVP 40 mg DAILY ERIKA Administration Scopolamine 1 patch 11/12/24 12:15 11/12/24 12:40 Scopolamine 1 Mg/3 Day Patch TRANSDERMA 1 patch Q72H ERIKA Administration Sodium Chloride 5 ml 11/10/24 21:13 11/12/24 22:36 Sodium Chloride 0.9 % (Flush) 10 Ml Syringe IVF 5 ml .FLUSH PRN Administration Sodium Chloride 5 ml 11/11/24 09:00 11/12/24 20:08 Sodium Chloride 0.9 % (Flush) 10 Ml Syringe IVF 5 ml BID ERIKA Administration <Chely Angela MD - Last Filed: 11/10/24 23:37> Medical Decision Making MDM Narrative Medical decision making narrative: Admit the patient upon EMS arrival and got her directly to the CT scanner for expedited neuro imaging as part of a stroke team activation that was requested by EMS. Initial history is as above. I ordered initial imaging and labs. We placed a phone consult her stroke neurology from [facility], Dr. Dami estrada. He is awaiting availability of neuro imaging and will call back. Discussed with my partner, Dr. Dowd. She will perform the rest of the primary survey and initial evaluation for this patient. Clinical impression 1. Altered mental status 2. Left-sided weakness <Aren Hanna MD - Last Filed: 11/13/24 10:57> Lab Data Lab results reviewed: Yes I reviewed the patient's lab results <Chely Angela MD - Last Filed: 11/10/24 23:37> Labs: Lab Results 11/10/24 11/10/24 11/10/24 Range/Units 17:11 17:14 17:25 WBC 13.01 H (4.50-11.00) K/uL RBC 3.90 L (4.00-5.20) m/uL Hgb 9.7 L (12.0-16.0) gm/dL Hct 31.9 L (33.0-51.0) % MCV 82 (80-100) fL MCH 25 L (26-34) pg MCHC 30 L (32-36) gm/dL RDW Coeff of Arturo 21.1 H (11.5-15.5) % Plt Count 281 (140-440) K/uL Neut % (Auto) 86.0 H (42.0-72.0) % Lymph % (Auto) 4.7 L (20-44) % [place] % (Auto) 8.8 (0.0-11.0) % Eos % (Auto) 0.0 (0.0-7.0) % Baso % (Auto) 0.2 (0.0-3.0) % Neut # (Auto) 11.20 H (1.7-7.0) K/uL Lymph # (Auto) 0.60 L (0.90-2.90) K/uL [place] # (Auto) 1.10 H (0.00-0.90) K/UL Eos # (Auto) 0.00 (0.00-0.50) K/uL Baso # (Auto) 0.00 (0.00-0.30) K/uL Abs Immat Gran (auto) 0.00 (0.00-0.30) K/uL Imm/Tot Granulo (auto) 0.3 % Diff Slide Review Acceptable Review (Acceptable) INR 0.98 (0.91-1.10) APTT 29 (23-33) Seconds Sodium 139 (135-149) mmol/L Potassium 3.8 (3.6-5.1) mmol/L Chloride 107 (96-114) mmol/L Carbon Dioxide 22 (20-32) mmol/L Anion Gap 10 (7-15) mEq/L BUN 21 (7-30) mg/dL Creatinine 0.7 (0.5-1.5) mg/dL Estimated GFR 91 ml/min Glucose 99 (60-115) mg/dL Lactate 4.4 H* (0.5-1.9) mmol/L Calcium 9.1 (8.4-10.6) mg/dL Total Bilirubin 0.3 (0.1-1.5) mg/dL AST 71 H (12-35) U/L ALT 33 (4-35) U/L Alkaline Phosphatase 74 (40-150) U/L Total Creatine Kinase 581 H (41-117) U/L Troponin I 2.26 H* (0.01-0.04) ng/mL C-Reactive Protein 4.2 H (0.5-1.0) mg/dL Total Protein 6.6 (6.0-8.3) g/dL Albumin 3.6 (3.3-5.0) g/dL Procalcitonin 0.13 (<0.50) ng/mL TSH 0.933 (0.270-4.200) uIU/mL Ethyl Alcohol < 0.01 (0.01-0.03) % SARS-CoV-2 (PCR) Negative SARS-CoV-2 (Negative) Influenza Type A (PCR) Negative PCR FLU A (Negative) Influenza Type B (PCR) Negative PCR FLU B (Negative) Lab Acknowledgement Test Added Test Added <Aren Hanna MD - Last Filed: 11/13/24 10:57> Lab Results 11/10/24 11/10/24 11/10/24 Range/Units 17:11 17:14 17:25 WBC 13.01 H (4.50-11.00) K/uL RBC 3.90 L (4.00-5.20) m/uL Hgb 9.7 L (12.0-16.0) gm/dL Hct 31.9 L (33.0-51.0) % MCV 82 (80-100) fL MCH 25 L (26-34) pg MCHC 30 L (32-36) gm/dL RDW Coeff of Arturo 21.1 H (11.5-15.5) % Plt Count 281 (140-440) K/uL Neut % (Auto) 86.0 H (42.0-72.0) % Lymph % (Auto) 4.7 L (20-44) % [place] % (Auto) 8.8 (0.0-11.0) % Eos % (Auto) 0.0 (0.0-7.0) % Baso % (Auto) 0.2 (0.0-3.0) % Neut # (Auto) 11.20 H (1.7-7.0) K/uL Lymph # (Auto) 0.60 L (0.90-2.90) K/uL [place] # (Auto) 1.10 H (0.00-0.90) K/UL Eos # (Auto) 0.00 (0.00-0.50) K/uL Baso # (Auto) 0.00 (0.00-0.30) K/uL Abs Immat Gran (auto) 0.00 (0.00-0.30) K/uL Imm/Tot Granulo (auto) 0.3 % Diff Slide Review Acceptable Review (Acceptable) INR 0.98 (0.91-1.10) APTT 29 (23-33) Seconds Sodium 139 (135-149) mmol/L Potassium 3.8 (3.6-5.1) mmol/L Chloride 107 (96-114) mmol/L Carbon Dioxide 22 (20-32) mmol/L Anion Gap 10 (7-15) mEq/L BUN 21 (7-30) mg/dL Creatinine 0.7 (0.5-1.5) mg/dL Estimated GFR 91 ml/min Glucose 99 (60-115) mg/dL Lactate 4.4 H* (0.5-1.9) mmol/L Calcium 9.1 (8.4-10.6) mg/dL Total Bilirubin 0.3 (0.1-1.5) mg/dL AST 71 H (12-35) U/L ALT 33 (4-35) U/L Alkaline Phosphatase 74 (40-150) U/L Total Creatine Kinase 581 H (41-117) U/L Troponin I 2.26 H* (0.01-0.04) ng/mL C-Reactive Protein 4.2 H (0.5-1.0) mg/dL Total Protein 6.6 (6.0-8.3) g/dL Albumin 3.6 (3.3-5.0) g/dL Procalcitonin 0.13 (<0.50) ng/mL TSH 0.933 (0.270-4.200) uIU/mL Ethyl Alcohol < 0.01 (0.01-0.03) % SARS-CoV-2 (PCR) Negative SARS-CoV-2 (Negative) Influenza Type A (PCR) Negative PCR FLU A (Negative) Influenza Type B (PCR) Negative PCR FLU B (Negative) Lab Acknowledgement Test Added Test Added <Chely Angela MD - Last Filed: 11/10/24 23:37> Imaging Data CT scan - head: Attestation: I have reviewed the pertinent imaging results. <Aren Hanna MD - Last Filed: 11/13/24 10:57> My impression: On review of the CT scanner I am concerned about edema affecting her right MCA territory . concerning for subacute or evolving infarct. I do not see any blood.. Awaiting neuro radiology and formal radiology interpretation. <Aren Hanna MD - Last Filed: 11/13/24 10:57> Radiologist's impression: Patient: MICHAEL CRUMP Facility:?[facility] [place] [facility] Patient ID:?[id number] Site Patient ID:?[id number]. Site :?1950 Study:?CT-Head CODE STROKE W/O-11/10/2024 5:02:16 PM Ordering Physician:Halle Younger Final Report: INDICATION: Altered mental status, left-sided weakness TECHNIQUE: Noncontrast axial CT of the head. Coronal and sagittal reformats. Bone and soft tissue algorithms. COMPARISON: CT head 03/03/2023 FINDINGS: Faint confluent hypoattenuation and loss of hirsch-white matter differentiation throughout the right frontotemporoparietal lobes, with associated sulcal effacement compatible with evolving MCA territory infarct. No hemorrhagic transformation. No ventricular effacement or midline shift. Suggestion of low-attenuation extra-axial collection on the axial reformatted series 5 is not apparent on the original axial series 3, and favored artifactual. Unremarkable midline structures. Calcific intracranial atherosclerotic plaquing. Intact calvarium. Clear paranasal sinuses and mastoid air cells. Right lens implant. IMPRESSION: 1. Acute-appearing large right MCA territory infarct. No hemorrhagic transformation. No midline shift or herniation. Exam findings were discussed with Dr. Key at 5:15 p.m. on 11/10/2024. Please note that all CT scans at this facility use dose modulation, iterative reconstruction, and/or weight-based dosing when appropriate to reduce radiation dose to as low as reasonably achievable. Dictated by Mesha Schultz MD @ 11/10/2024 5:24:14 PM (Electronic Signature) <Chely Angela MD - Last Filed: 11/10/24 23:37> CT cervical spine: Attestation: I have reviewed the pertinent imaging results. <Chely Angela MD - Last Filed: 11/10/24 23:37> Radiologist's impression: Patient: MICHAEL CRUMP Facility:?[facility] [place] [facility] Patient ID:?[id number] Site Patient ID:?[id number]. Site :?1950 Study:?CT-Spine Cervical W/O-11/10/2024 7:53:55 PM Ordering Physician:David Mo Final Report: INDICATION: Trauma. TECHNIQUE: CT cervical spine without contrast. COMPARISON: None. FINDINGS: Vertebrae: Alignment is normal. There are no fractures or suspicious bony lesions. Discs and facet joints: There are diffuse degenerative changes in the disc spaces and facet joints. Extraspinal findings: Paraspinous soft tissues are unremarkable. IMPRESSION: 1. No sign of acute injury. 2. Multilevel degenerative spondylosis. Please note that all CT scans at this facility use dose modulation, iterative reconstruction, and/or weight-based dosing when appropriate to reduce radiation dose to as low as reasonably achievable. Dictated by García Hill MD @ 11/10/2024 8:04:43 PM (Electronic Signature) <Chely Angela MD - Last Filed: 11/10/24 23:37> CT scan - chest: Attestation: I have reviewed the pertinent imaging results. <Chely Angela MD - Last Filed: 11/10/24 23:37> Radiologist's impression: Patient: MICHAEL CRUMP Facility:?[facility] Patient ID:?[id number] Site Patient ID:?[id number]. Site :?1950 Study:?CT-Chest W/O-11/10/2024 7:54:57 PM Ordering Physician:David Mo Final Report: INDICATION: Altered mental status. TECHNIQUE: CT chest without contrast. COMPARISON: None. FINDINGS: Lungs and pleura: Pulmonary emphysema. Left upper lobe interstitial/ground-glass consolidation, possibly interstitial lung disease or infection. No suspicious nodules or infiltrates. Bibasilar atelectasis. No pleural effusions, pleural thickening, or pneumothorax. Heart and vasculature: Mild cardiomegaly with coronary artery calcifications.. Thoracic aorta and pulmonary artery are normal in caliber. Lymph nodes/mediastinum: No mediastinal, hilar, or axillary adenopathy. Chest wall: No masses. Upper abdomen: No significant findings. Bones: Degenerative changes. IMPRESSION: Left upper lobe interstitial/ground-glass consolidation, possibly interstitial lung disease or infection in the appropriate clinical setting. Pulmonary emphysema. Mild cardiomegaly with coronary artery calcifications. Otherwise, no acute intrathoracic abnormality. Please note that all CT scans at this facility use dose modulation, iterative reconstruction, and/or weight-based dosing when appropriate to reduce radiation dose to as low as reasonably achievable. Dictated by García Hill MD @ 11/10/2024 8:11:09 PM (Electronic Signature) <Chely Angela MD - Last Filed: 11/10/24 23:37> CT- Other: Attestation: I have reviewed the pertinent imaging results. <Chely Angela MD - Last Filed: 11/10/24 23:37> Radiologist's impression: Patient: MICHAEL STEVENHEAD Facility:?[facility] Patient ID:?[id number] Site Patient ID:?[id number]. Site :?1950 Study:?CT-Head Angio CODE STROKE W/ 95CC ISOVUE 370-11/10/2024 5:06:22 PM Ordering Physician:?Jacques Younger Preliminary Report: Prelim: CTA Head: 1. No intracranial large vessel occlusion. CTA NECK: 1. No hemodynamically significant stenosis or dissection in the neck. Dictated by Mesha Schultz MD @ 11/10/2024 5:30:18 PM Read by:?Mesha Schultz MD @11/10/2024 5:30:20 PM <Chely Angela MD - Last Filed: 11/10/24 23:37> ECG Data Attestation: I personally reviewed and interpreted this ECG as follows: (Sinus tachycardia with PACs, 126 beats per minute. Some inferior ST segment changes, lateral precordial leads as well but no inverted T-waves.) <Chely Angela MD - Last Filed: 11/10/24 23:37> Prior ECG tracings: available for review (Was not in tachycardia before, do wonder if this ischemic change is tachycardia associated.) <Chely Angela MD - Last Filed: 11/10/24 23:37> Discharge Plan Discharge Clinical Impression: Acute ischemic left MCA stroke, Elevated troponin <Aren Hanna MD - Last Filed: 11/13/24 10:57>
--- NOTE | 2024-11-10 17:14 | CRLHL7_ITS ---
For Patients: As a result of the Cures Act, medical imaging exams and procedure reports are released immediately into your electronic medical record. You may view this report before your referring provider. If you have questions, please contact your health care provider. INDICATION: Trauma. TECHNIQUE: CT cervical spine without contrast. COMPARISON: None. FINDINGS: Vertebrae: Alignment is normal. There are no fractures or suspicious bony lesions. Discs and facet joints: There are diffuse degenerative changes in the disc spaces and facet joints. Extraspinal findings: Paraspinous soft tissues are unremarkable. IMPRESSION: 1. No sign of acute injury. 2. Multilevel degenerative spondylosis. Please note that all CT scans at this facility use dose modulation, iterative reconstruction, and/or weight-based dosing when appropriate to reduce radiation dose to as low as reasonably achievable. Dictated by García Hill MD @ 11/10/2024 8:04:43 PM (Electronically Signed)
[2024-11-10 17:41] LABS: Lactate* 4.4 mmol/L (0.5-1.9)
[2024-11-10 17:58] LABS: Albumin* 3.6 g/dL (3.3-5.0); Chloride* 107 mmol/L (96-114); Hematocrit* 31.9 % (33.0-51.0); Hemoglobin* 9.7 gm/dL (12.0-16.0); Immature Granulocytes Pct Auto 0.3 %; Mean Corpuscular HGB Conc 30 gm/dL (32-36); Mean Corpuscular Hemoglobin 25 pg (26-34); Mean Corpuscular Volume 82 fL (80-100); Potassium* 3.8 mmol/L (3.6-5.1); RDW Coefficient of Variation % 21.1 % (11.5-15.5); Red Blood Count* 3.90 m/uL (4.00-5.20); Sodium* 139 mmol/L (135-149); White Blood Count* 13.01 K/uL (4.50-11.00)
[2024-11-10 18:00] LABS: Blood Urea Nitrogen* 21 mg/dL (7-30); Creatinine* 0.7 mg/dL (0.5-1.5); Estimated Glomerular Filt Rate 91 ml/min
[2024-11-10 18:01] LABS: Alanine Aminotransferase* 33 U/L (4-35); Alkaline Phosphatase* 74 U/L (40-150); Anion Gap 10 mEq/L (7-15); Aspartate Amino Transferase* 71 U/L (12-35); Bilirubin Total* 0.3 mg/dL (0.1-1.5); Calcium* 9.1 mg/dL (8.4-10.6); Carbon Dioxide* 22 mmol/L (20-32); Creatine Kinase* 581 U/L (41-117); Glucose* 99 mg/dL (60-115); Immature Granulocytes Abs Auto 0.00 K/uL (0.00-0.30); Lymphocytes Absolute Auto 0.60 K/uL (0.90-2.90); Total Protein* 6.6 g/dL (6.0-8.3)
[2024-11-10 18:02] LABS: Slide Review Reflex Yes
[2024-11-10] MEDS: ASPIRIN 300 MG SUPP PR (18:02)
[2024-11-10 18:07] LABS: Ethanol* < 0.01 % (0.01-0.03)
[2024-11-10 18:22] LABS: Slide Review Acceptable Review (Acceptable)
[2024-11-10 18:46] LABS: TSH With Reflex to FT4* 0.933 uIU/mL (0.270-4.200)
[2024-11-10 18:55] LABS: PCR FLU A Negative PCR FLU A (Negative); PCR FLU B Negative PCR FLU B (Negative); SARS PCR* Negative SARS-CoV-2 (Negative)
[2024-11-10 19:06] LABS: INR 0.98 (0.91-1.10); Prothrombin Time 13.8 Seconds
--- NOTE | 2024-11-10 19:11 | CRLHL7_ITS ---
For Patients: As a result of the Century Cures Act, medical imaging exams and procedure reports are released immediately into your electronic medical record. You may view this report before your referring provider. If you have questions, please contact your health care provider. INDICATION: Altered mental status. TECHNIQUE: CT chest without contrast. COMPARISON: None. FINDINGS: Lungs and pleura: Pulmonary emphysema. Left upper lobe interstitial/ground-glass consolidation, possibly interstitial lung disease or infection. No suspicious nodules or infiltrates. Bibasilar atelectasis. No pleural effusions, pleural thickening, or pneumothorax. Heart and vasculature: Mild cardiomegaly with coronary artery calcifications.. Thoracic aorta and pulmonary artery are normal in caliber. Lymph nodes/mediastinum: No mediastinal, hilar, or axillary adenopathy. Chest wall: No masses. Upper abdomen: No significant findings. Bones: Degenerative changes. IMPRESSION: Left upper lobe interstitial/ground-glass consolidation, possibly interstitial lung disease or infection in the appropriate clinical setting. Pulmonary emphysema. Mild cardiomegaly with coronary artery calcifications. Otherwise, no acute intrathoracic abnormality. Please note that all CT scans at this facility use dose modulation, iterative reconstruction, and/or weight-based dosing when appropriate to reduce radiation dose to as low as reasonably achievable. Dictated by García Hill MD @ 11/10/2024 8:11:09 PM (Electronically Signed)
--- NOTE | 2024-11-10 19:32 | PM.IMHP1 ---
Assessment and Plan Assessment and plan (1) CVA (cerebral vascular accident): Problem comment: -CT head shows Acute-appearing large right MCA territory infarct. No hemorrhagic transformation. No midline shift or herniation -CTA head/neck shows no intracranial large vessel occlusion. No hemodynamically significant stenosis or dissection in the neck -ED provider discussed with Neurology, Dr. Casillas. Believes he sees some small petechial hemorrhage within the infarct. Recommending local hospitalization but notes patient is at risk for malignant edema. Survival from this malignant edema would be low and currently only recommending medical management. Not a candidate for lytic therapy. Recommendations as follows: -rectal aspirin 300 mg given in ED -MR brain tomorrow morning (if morning time slot not available, recommending repeat CT head in the morning) -neuro checks q2 hours, monitoring for signs of brain swelling (unequal pupils, vomiting, seizures, etc) -seizure precautions -ECHO if able -cardiac catheterization technician -lipids, A1c -NPO, IVF as unable to follow commands currently. 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 No enoxaparin. SCDs ordered -follow-up with tele neurology tomorrow Status: Acute (2) Elevated troponin: Problem comment: -troponin 2.26 -ED provider contacted Cardiology and spoke with Dr. Purdy from [facility]. Reviewed patient's current situation with the left MCA territory infarct. We reviewed the elevated troponin, she did review the EKG, agrees that this is an atrial tachycardia with PACs. She is not sure why the trope is elevated, if there is supply demand issue or tachycardic driven. She states patient had a normal echo last year in November outside of [id number] tricuspid regurgitation. Patient has not had any prior ischemic evaluation. Given patient's stroke issues, she would just trend this right now. -trend troponins, cardiac catheterization technician -not currently a candidate for angiography, angiograms in setting of acute CVA -discussed with daughter and family Status: Acute (3) Elevated CK: Problem comment: -found down, last known well 11/09 (last communication was 0730am but patient verbalized to dtr [employer] losing last night which would have been after 2100pm) -CK 581, recheck tomorrow -gentle fluid hydration given concern for potential brain swelling Status: Acute (4) Fever: Problem comment: -T 100?, mild tachycardia -leukocytosis with left shift, lactate 4.4 - will recheck upon arrival to floor, add CRP, procalcitonin -BC x2 pending, UA ordered -CT chest shows Left upper lobe interstitial/ground-glass consolidation, possibly interstitial lung disease or infection in the appropriate clinical setting - suspect aspiration pneumonia while down for unknown time -levofloxacin 500mg IV q 24H (h/o PCN allergy? so avoiding amp/sulb for now) -continue gentle IV hydration given concern for potential brain swelling Status: Acute (5) Aspiration pneumonia: Problem comment: -suspected given being down on floor -CT chest as above suspicious for same -IV levofloxacin Status: Acute (6) Hypertension: Problem comment: -recent medication changes per [facility] as noted below -not currently hypertensive, however, in setting of acute CVA concerning for petechial hemorrhage, goal SBP would be 130-140 Status: Acute (7) Chilblains: Problem comment: -Per I visit, Dr. Jimy Barahona, on 11/03/24:Discontinue atenolol and start on losartan 50 mg p.o. daily. Increase amlodipine from 2.5 mg once to twice daily. Monitor blood pressure with goal of less than 130/80 mmHg Status: Acute (8) PAD (peripheral artery disease): Problem comment: -Recent Chiblains dx, see above Status: Acute (9) Tobacco abuse: Problem comment: -history of previous heavy smoker, current E cigarette use -pulmonary emphysema noted on CT chest Status: Acute (10) Hypothyroid: Problem comment: -levothyroxine Status: Acute (11) Low back pain: Problem comment: -chronic, managed with gabapentin and tramadol Status: Acute (12) Hyperlipidemia: Problem comment: -do not see a statin on record. Atorvastatin allergy documented -lipids ordered Status: Acute (13) GERD (gastroesophageal reflux disease): Problem comment: -lansoprazole and famotidine -IV PPI for now Status: Acute Total Time Spent Total Time Spent: Today I spent 75 minutes seeing the patient, reviewing Expanse and EPIC notes/diagnostics, discussing the care plan with our care time that includes social work, PT/OT, pharmacy, RT, assisted and documenting my impressions and plan in the medical record. Hospitalist- H&P: HPI History of Present Illness Date Seen: 11/10/24 Chief complaint: Stroke Narrative: Jordana Nava is a 74 year old female past medical history significant for hypertension, hyperlipidemia, hypothyroid, PAD, GERD, osteopenia, chronic low back pain, anxiety, paranoid is admitted to the medical floor from the ED for further management acute right MCA CVA. Patient is unable to participate in exam. Daughter, son-in-law, grandson, stepdaughter at bedside. Daughter provides history. Tells me her mother texted her at 7:30 a.m. Sunday. Daughter did not respond to her yesterday but was sending her texts this morning and did not get a reply. Went to patient's home around 3:30 p.m. and found her lying on the floor. A turned over small table was nearby. At that time she was able to communicate. While she did exhibit confusion, inability to speak, gibberish, she did have moments of lucidity and ability to put sentences together. Patient was noted to have a left-sided weakness. Patient was able to tell her daughter that she saw the [employer] lost last night - which would have been sometime after 9:00 p.m. Sunday. In the ED, symptoms continue to progress, ED provider reporting that patient unable to follow commands or speak. Currently, patient is asleep, mildly sonorous, and does not wake to follow commands. Active E cigarette smoker. No alcohol use. PCP is Dr. Escalante. No healthcare directive/advanced care directive. Daughter will discuss with family plan for code status. Also aware that if patient's condition should continue to worsen or signs of brain swelling present, she will need to consider if we should pursue comfort cares. Review of Systems Narrative: REVIEW OF SYSTEMS: Complete review of systems performed and negative unless otherwise stated in HPI or below. Medical Decision Making Medical Decision Making Code Status: Family to confirm Has patient completed a Health Care Directive: No During This Stay, Who Would You Like To Make Decisions For You In The Event You Are Unable To Make Them For Yourself?: Next of kin, daughter [facility] Medical History Collagenous colitis ?K52.831 - Collagenous colitis (ICD-10) Hyperlipidemia ?E78.5 - Hyperlipidemia, unspecified (ICD-10) Bilateral lower extremity edema ?R60.0 - Localized edema (ICD-10) Paranoia ?F22 - Delusional disorders (ICD-10) Anxiety ?F41.9 - Anxiety disorder, unspecified (ICD-10) Low back pain ?M54.50 - Low back pain, unspecified (ICD-10) Osteopenia ?M85.80 - Other specified disorders of bone density and structure, unspecified site (ICD-10) Hypothyroid ?E03.9 - Hypothyroidism, unspecified (ICD-10) Tobacco abuse ?Z72.0 - Tobacco use (ICD-10) PAD (peripheral artery disease) ?I73.9 - Peripheral vascular disease, unspecified (ICD-10) GERD (gastroesophageal reflux disease) ?K21.9 - Gastro-esophageal reflux disease without esophagitis (ICD-10) Hypertension ?I10 - Essential (primary) hypertension (ICD-10) Chilblains ?T69.1XXA - Chilblains, initial encounter (ICD-10) Social History Smoking Status: Never smoker How often do you have a drink containing alcohol: never AUDIT-C Alcohol total score: 0 Non-prescribed substance use: denies use Meds Home Medications and Allergies Home Medications ?Medication ?Instructions ?Recorded ?Confirmed ?Type amlodipine 2.5 mg tablet 2.5 mg PO DAILY 03/03/23 04/03/23 History atenolol 100 mg tablet 100 mg PO DAILY 03/03/23 04/03/23 History famotidine 40 mg tablet 40 mg PO DAILY 03/03/23 04/03/23 History furosemide 20 mg tablet PO 03/03/23 History gabapentin 100 mg capsule PO 03/03/23 History lansoprazole 30 mg capsule,delayed 30 mg PO DAILY 03/03/23 04/03/23 History release levothyroxine 112 mcg tablet 112 mcg PO DAILY 03/03/23 04/03/23 History levothyroxine 125 mcg tablet 125 mcg PO DAILY 03/03/23 04/03/23 History potassium chloride 20 mEq 20 meq PO BID 03/03/23 04/03/23 History tablet,extended release(part/cryst) Allergies Allergy/AdvReac Type Severity Reaction Status Date / Time atorvastatin (From Lipitor) Allergy Verified 09/11/23 11:25 doxazosin (From Cardura) Allergy Verified 09/11/23 11:25 lisinopril Allergy Verified 09/11/23 11:25 metoprolol Allergy Verified 09/11/23 11:25 neomycin Allergy Verified 09/11/23 11:25 Penicillins Allergy Verified 09/11/23 11:25 sulfamethoxazole (From Allergy Verified 09/11/23 11:25 Bactrim) trimethoprim (From Bactrim) Allergy Verified 09/11/23 11:25 Exam Narrative: Exam Narrative: PHYSICAL EXAM General: Mildly sonorous, NAD HEENT: Normocephalic, atraumatic, sclera white, pupils equal, sluggish Cardiovascular: IRRR. No pitting edema Pulmonary: CTA bilaterally without rhonchi, rales, expiratory wheezes. No dyspnea on room air Abdominal: Soft, nondistended, NTTP Neurological: Sonorous, unable to engage in exam Extremities: No gross joint deformity or swelling. Pulses intact Skin: Warm, dry. Const: Vital Signs, click to edit/add: Vital Signs - 24 hr 11/10/24 17:06 11/10/24 17:13 11/10/24 17:14 Temperature 100 F H Pulse Rate Pulse Rate [Pulse Oximeter] 121 H Respiratory Rate 14 13 Blood Pressure 115/91 H Blood Pressure [Le ft Upper Arm] 131/99 H Pulse Oximetry 98 Oxygen Delivery Me thod Room Air 11/10/24 17:15 11/10/24 17:20 11/10/24 17:21 Temperature Pulse Rate 117 H Pulse Rate [Pulse Oximeter] 117 H Respiratory Rate 15 20 20 Blood Pressure 117/89 Blood Pressure [Le ft Upper Arm] Pulse Oximetry 98 Oxygen Delivery Me thod Room Air 11/10/24 17:30 11/10/24 17:30 11/10/24 17:32 Temperature Pulse Rate Pulse Rate [Pulse Oximeter] 110 H Respiratory Rate 17 11 L 11 L Blood Pressure 121/95 H Blood Pressure [Le ft Upper Arm] Pulse Oximetry 98 Oxygen Delivery Me thod 11/10/24 17:40 11/10/24 17:41 11/10/24 17:45 Temperature Pulse Rate Pulse Rate [Pulse Oximeter] 107 H Respiratory Rate 20 20 17 Blood Pressure 125/98 H Blood Pressure [Le ft Upper Arm] Pulse Oximetry 98 Oxygen Delivery Me od Room Air 11/10/24 17:50 11/10/24 17:52 11/10/24 18:00 Temperature Pulse Rate Pulse Rate [Pulse Oximeter] 102 H Respiratory Rate 24 24 27 H Blood Pressure 127/77 Blood Pressure [Le ft Upper Arm] 127/77 [facility]ulse Oximetry [facility] 11/10/24 18:02 11/10/24 18:03 11/10/24 18:08 Temperature Pulse Rate Pulse Rate [Pulse Oximeter] Respiratory Rate 20 21 Blood Pressure 117/84 Blood Pressure [Le ft Upper Arm] Pulse Oximetry 93 [facility] 11/10/24 18:15 Temperature Pulse Rate Pulse Rate [Pulse Oximeter] Respiratory Rate 16 Blood Pressure Blood Pressure [Le ft Upper Arm] Pulse Oximetry [facility] - H&P: Result Labs Labs: Short CBC 11/10/24 Range/Units 17:25 WBC 13.01 H (4.50-11.00) K/uL Hgb 9.7 L (12.0-16.0) gm/dL Hct 31.9 L (33.0-51.0) % Plt Count 281 (140-440) K/uL BMP 11/10/24 17:25 Sodium 139 Potassium 3.8 Chloride 107 Carbon Dioxide 22 BUN 21 Creatinine 0.7 Glucose 99 Calcium 9.1 Cardiac Enzymes 11/10/24 Range/Units 17:25 Total Creatine Kinase 581 H (41-117) U/L Troponin I 2.26 H* (0.01-0.04) ng/mL Liver Function 11/10/24 Range/Units 17:25 Total Bilirubin 0.3 (0.1-1.5) mg/dL AST 71 H (12-35) U/L ALT 33 (4-35) U/L Alkaline Phosphatase 74 (40-150) U/L Albumin 3.6 (3.3-5.0) g/dL ECG Attestation: I personally reviewed and interpreted this ECG as follows: ECG interpretation date: 11/10/24 Interpretation: Sinus tach with PVCs, QTC [address] scan - head: Attestation: I have reviewed the pertinent imaging results. Radiologist's impression: Faint confluent hypoattenuation and loss of hirsch-white matter differentiation throughout the right frontotemporoparietal lobes, with associated sulcal effacement compatible with evolving MCA territory infarct. No hemorrhagic transformation. No ventricular effacement or midline shift. Suggestion of low-attenuation extra-axial collection on the axial reformatted series 5 is not apparent on the original axial series 3, and favored artifactual. Unremarkable midline structures. Calcific intracranial atherosclerotic plaquing. Intact calvarium. Clear paranasal sinuses and mastoid air cells. Right lens implant. IMPRESSION: 1. Acute-appearing large right MCA territory infarct. No hemorrhagic transformation. No midline shift or herniation. CT C-spine: Attestation: I have reviewed the pertinent imaging results. Radiologist's impression: Vertebrae: Alignment is normal. There are no fractures or suspicious bony lesions. Discs and facet joints: There are diffuse degenerative changes in the disc spaces and facet joints. Extraspinal findings: Paraspinous soft tissues are unremarkable. IMPRESSION: 1. No sign of acute injury. 2. Multilevel degenerative spondylosis. CT scan - chest: Attestation: I have reviewed the pertinent imaging results. Radiologist's impression: [place] [address] Diagnostic Imaging Report Patient: Jordana Nava MR#: [id number] : 1950 Acct:[id number] Loc: [id number] Service Date: 11/10/[address]: Melissa Aguero M.D. Ordering Physician: Chely Angela M.D. Date of Service: 11/10/24 Procedure(s): CT chest wo [facility] Accession Number(s): [id number] cc: Drea Escalante M.D.; Chely Angela M.D.~ For Patients: As a result of the Century Cures Act, medical imaging exams and procedure reports are released immediately into your electronic medical record. You may view this report before your referring provider. If you have questions, please contact your health care provider. INDICATION: Altered mental status. TECHNIQUE: CT chest without contrast. COMPARISON: None. FINDINGS: Lungs and pleura: Pulmonary emphysema. Left upper lobe interstitial/ground-glass consolidation, possibly interstitial lung disease or infection. No suspicious nodules or infiltrates. Bibasilar atelectasis. No pleural effusions, pleural thickening, or pneumothorax. Heart and vasculature: Mild cardiomegaly with coronary artery calcifications.. Thoracic aorta and pulmonary artery are normal in caliber. Lymph nodes/mediastinum: No mediastinal, hilar, or axillary adenopathy. Chest wall: No masses. Upper abdomen: No significant findings. Bones: Degenerative changes. IMPRESSION: Left upper lobe interstitial/ground-glass consolidation, possibly interstitial lung disease or infection in the appropriate clinical setting. Pulmonary emphysema. Mild cardiomegaly with coronary artery calcifications. Otherwise, no acute intrathoracic abnormality. CTA head/neck: Attestation: I have reviewed the pertinent imaging results. Radiologist's impression: CTA Head: 1. No intracranial large vessel occlusion. CTA NECK: 1. No hemodynamically significant stenosis or dissection in the neck.
[2024-11-10 21:34] LABS: Lactate* 1.3 mmol/L (0.5-1.9)
[2024-11-10 21:49] LABS: Procalcitonin* 0.13 ng/mL (<0.50)
[2024-11-10] MEDS: levoFLOXacin 500 MG/100 ML D5W 500 MG/100 ML PIGGYBACK 100 MG IVPB (22:45)
[2024-11-11] VITALS (22 sets, daily range): BP systolic 89–129; BP diastolic 68–90; PULSE 81–157; RESP 16–20; TEMP 36.4–37.5; O2SAT 95–100
--- NOTE | 2024-11-11 06:00 | CRLHL7_ITS ---
For Patients: As a result of the Century Cures Act, medical imaging exams and procedure reports are released immediately into your electronic medical record. You may view this report before your referring provider. If you have questions, please contact your health care provider. Indication: Right MCA infarct. Technique: Limited MRI of the brain was performed, given patient motion and unable to tolerate the entire imaging protocol. Sequences obtained: Sagittal T1, axial T2 and T2 FLAIR. Comparison: CT head 11/10/2024. Findings: Large region of cytotoxic edema identified within the right MCA territory. There is localized mass effect. No hydrocephalus. Fourth ventricle appears midline. Moderate chronic ischemic microvascular disease. Impression: 1. Limited study as the entire imaging protocol was not completed. 2. Large area of cytotoxic edema throughout the right MCA distribution, compatible with acute/subacute infarct. 3. Mild localized mass effect. Dictated by Mane Lassiter MD @ 11/11/2024 10:10:55 AM (Electronically Signed)
[2024-11-11 06:42] LABS: Hematocrit* 26.7 % (33.0-51.0); Hemoglobin* 8.4 gm/dL (12.0-16.0); Mean Corpuscular HGB Conc 32 gm/dL (32-36); Mean Corpuscular Hemoglobin 25 pg (26-34); Mean Corpuscular Volume 80 fL (80-100); Red Blood Count* 3.32 m/uL (4.00-5.20); White Blood Count* 10.40 K/uL (4.50-11.00)
--- NOTE | 2024-11-11 06:49 | PC.NURSE ---
Pt is alert and oriented x3. Afebrile. When pt arrived on unit around 1999 pt was unarousable, pupils were equal with sluggish reaction to light. Pt is now able to open eyes to name, pupils continue to be sluggish, pt able to answer some questions with nodding yes or no. Per pt sister who is at bedside; pt told her?that she had some pain in her upper back and shoulders, managed with heating pad and repositioning. 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 Pt's rojo catheter is patent and draining. Pt was turned and repositioned throughout night and tolerating an NPO diet. ??
[2024-11-11 06:50] LABS: Slide Review Reflex No
[2024-11-11 06:53] LABS: Chloride* 110 mmol/L (96-114)
[2024-11-11 06:54] LABS: Potassium* 3.6 mmol/L (3.6-5.1); Sodium* 138 mmol/L (135-149)
[2024-11-11 06:56] LABS: Blood Urea Nitrogen* 16 mg/dL (7-30); Cholesterol* 167 mg/dL (90-199); Creatine Kinase* 578 U/L (41-117); Creatinine* 0.7 mg/dL (0.5-1.5); Est. Creatinine Clearance* 34.47; Estimated Glomerular Filt Rate 91 ml/min
[2024-11-11 06:57] LABS: Anion Gap 4 mEq/L (7-15); Calcium* 8.7 mg/dL (8.4-10.6); Carbon Dioxide* 24 mmol/L (20-32); Glucose* 97 mg/dL (60-115); HDL Cholesterol* 58 mg/dL (>=50); Triglycerides* 102 mg/dL (40-149)
--- NOTE | 2024-11-11 11:07 | PM.IMPN1 ---
Assessment and Plan Assessment and plan (1) CVA (cerebral vascular accident): Problem comment: -CT head shows Acute-appearing large right MCA territory infarct. No hemorrhagic transformation. No midline shift or herniation -CTA head/neck shows no intracranial large vessel occlusion. No hemodynamically significant stenosis or dissection in the neck -ED provider discussed with Neurology, Dr. Casillas. Believes he sees some small petechial hemorrhage within the infarct. Recommending local hospitalization but notes patient is at risk for malignant edema, not a candidate for lytic therapy. Received rectal ASA in ER -MRI 11/11: Large area of cytotoxic edema throughout the right MCA distribution, compatible with acute/subacute infarct -11/11: Therapies, TTE, follow with Stroke Neurology -currently NPO, on IVFs Status: Acute (2) Elevated troponin: Problem comment: -troponin 2.26 -ED provider contacted Cardiology and spoke with Dr. Purdy from [facility]. Reviewed patient's current situation with the left MCA territory infarct. We reviewed the elevated troponin, she did review the EKG, agrees that this is an atrial tachycardia with PACs. She is not sure why the trope is elevated, if there is supply demand issue or tachycardic driven. She states patient had a normal echo last year in November outside of [id number] tricuspid regurgitation. Patient has not had any prior ischemic evaluation. Given patient's stroke issues, she would just trend this right now. -not currently a candidate for angiography, angiograms in setting of acute CVA -troponin peaked at 4.83, TTE ordered at 11/11 to better evaluate Status: Acute (3) Agitated: Problem comment: - multifactorial; CVA, history of back pain, possible nicotine withdrawal - add Lidocaine patch prn, add Nicotine patch, continue redirection - consider low dose Seroquel as needed Status: Acute (4) Atrial fibrillation with RVR: Problem comment: - new diagnosis 11/11 - TTE pending, on telemetry - NPO so adding Lovenox 1mg/kg on 11/11 - Metoprolol Q6H (monitor BP closely to ensure no further iatrogenic hypotension) Status: Acute (5) Fever: Problem comment: -T 100?, mild tachycardia in ER -leukocytosis with left shift, lactate 4.4 ---> 1.3 after IVF resuscitation -BC x2 pending and NGTD, UA negative -CT chest shows Left upper lobe interstitial/ground-glass consolidation, suspect aspiration pneumonia while down for unknown time -levofloxacin 500mg IV q 24H given PCN allergy (11/10) -continue gentle IV hydration given concern for potential brain swelling Status: Acute (6) Aspiration pneumonia: Problem comment: -suspected given being down on floor -CT chest as above suspicious for same -IV levofloxacin (11/10) Status: Acute (7) PAD (peripheral artery disease): Problem comment: - + diagnosis of Chiblains, follows with Dr. Barahona (last visit 11/03/24) Status: Acute (8) Tobacco abuse: Problem comment: - history of previous heavy smoker, current heave E-Cigarette use - pulmonary emphysema noted on CT chest - Nicotine patch added 11/11 Status: Acute (9) Low back pain: Problem comment: -chronic, managed with gabapentin and tramadol -holding per Neurology recommendations, Lidocaine patch prn Status: Acute (10) Hyperlipidemia: Problem comment: -do not see a statin on record. Atorvastatin allergy documented -lipids ordered, LDL 89 -will add statin when tolerating po Status: Acute (11) GERD (gastroesophageal reflux disease): Problem comment: -lansoprazole and famotidine -IV PPI for now Status: Acute (12) Hypertension: Problem comment: -recent medication changes per [facility] as noted below (Amlodipine, Losartan, Lasix) -BPs hypotensive, continue IVFs to attempt and maintain SBP >110 Status: Acute (13) Elevated CK: Problem comment: -found down, last known well 11/09 (last communication was 0730am but patient verbalized to dtr [employer] losing last night which would have been after 2100pm) -CK 581 --> 578 11/11 -gentle fluid hydration and follow -normal renal function, mild AST elevation Status: Acute (14) Hypothyroid: Problem comment: - last TSH was 1.5 10/20, typically on Levothyroxine, will restart when able to take po Status: Acute Plan - per above (therapies, TTE, a fib management) - daughter and twin sister updated bedside, questions answered, understand guarded prognosis Subjective Date Seen: 11/11/24 Interval history: Jordana was admitted to the hospital last night for a R MCA CVA; presented to the ER with confusion and L sided weakness. Last known well was the evening of 11/09. Head CT in the ER was concerning for an evolving right MCA CVA; chest CT noted left upper lobe ground-glass consolidation, possibly pneumonia. Stroke Neurology was consulted and Levaquin initiated for antibiotic therapy. This morning, MRI completed and notable for large area of cytotoxic edema throughout R MCA, compatible with acute/subacute infarct. TTE and therapies today. Jordana alternates between somnolence and waking up to talk with family. She has been intermittently agitated, does not believe she has had a stroke. After appointment with Dr. Romo, noted to have HR of 130-150; EKG revealed a fib with RVR. Exam Narrative: Exam Narrative: GEN: Laying in bed, resting during my first visit, then awake and agitated during second visit HEENT: No scleral icterus, oropharynx slightly dry CV: Rate 130s, irregular R: LCTA bilaterally without wheezing Ext: Thin extremities without concerning findings Skin: No concerning skin lesions or rashes on exposed skin Neuro: Patient not following commands for formal exam, but noted to have bilateral R-mendes gaze, L sided weakness of UE and LE Psych: Agitated, perseverating on having a drink, redirectable Const: Vital Signs, click to edit/add: Vital Signs - 24 hr 11/10/24 17:06 11/10/24 17:13 11/10/24 17:14 Temperature 100 F H Pulse Rate Pulse Rate [Pulse Oximeter] 121 H Respiratory Rate 14 13 Blood Pressure 115/91 H Blood Pressure [Le ft Arm] Blood Pressure [Le ft Upper Arm] 131/99 H Pulse Oximetry 98 Oxygen Delivery Me thod Room Air 11/10/24 17:15 11/10/24 17:20 11/10/24 17:21 Temperature Pulse Rate 117 H Pulse Rate [Pulse Oximeter] 117 H Respiratory Rate 15 20 20 Blood Pressure 117/89 Blood Pressure [Le ft Arm] Blood Pressure [Le ft Upper Arm] Pulse Oximetry 98 Oxygen Delivery Me thod Room Air 11/10/24 17:30 11/10/24 17:30 11/10/24 17:32 Temperature Pulse Rate Pulse Rate [Pulse Oximeter] 110 H Respiratory Rate 17 11 L 11 L Blood Pressure 121/95 H Blood Pressure [Le ft Arm] Blood Pressure [Le ft Upper Arm] Pulse Oximetry 98 Oxygen Delivery Me thod 11/10/24 17:40 11/10/24 17:41 11/10/24 17:45 Temperature Pulse Rate Pulse Rate [Pulse Oximeter] 107 H Respiratory Rate 20 20 17 Blood Pressure 125/98 H Blood Pressure [Le ft Arm] Blood Pressure [Le ft Upper Arm] Pulse Oximetry 98 Oxygen Delivery Ut thod Room Air 11/10/24 17:50 11/10/24 17:52 11/10/24 18:00 Temperature Pulse Rate Pulse Rate [Pulse Oximeter] 102 H Respiratory Rate 24 24 27 H Blood Pressure 127/77 Blood Pressure [Le ft Arm] Blood Pressure [Le ft Upper Arm] 127/77 Pulse Oximetry 98 Oxygen Delivery Ut thod Room Air 11/10/24 18:02 11/10/24 18:03 11/10/24 18:08 Temperature Pulse Rate Pulse Rate [Pulse Oximeter] Respiratory Rate 20 21 Blood Pressure 117/84 Blood Pressure [Le ft Arm] Blood Pressure [Le ft Upper Arm] Pulse Oximetry 93 Oxygen Delivery Ut thod Room Air 11/10/24 18:15 11/10/24 20:06 11/10/24 20:06 Temperature 98.9 F Pulse Rate Pulse Rate [Pulse Oximeter] 106 H Respiratory Rate 16 18 18 Blood Pressure Blood Pressure [Le ft Arm] 117/78 Blood Pressure [Le ft Upper Arm] Pulse Oximetry 92 [facility] Room Air 11/10/24 20:06 11/10/24 21:13 11/10/24 21:13 Temperature Pulse Rate 113 H Pulse Rate [Pulse Oximeter] 106 H Respiratory Rate Blood Pressure Blood Pressure [Le ft Arm] Blood Pressure [Le ft Upper Arm] Pulse Oximetry 93 Oxygen Delivery Ut thod Room Air 11/10/24 21:50 11/10/24 23:03 11/10/24 23:03 Temperature 99.5 F Pulse Rate Pulse Rate [Pulse Oximeter] 98 109 H 109 H Respiratory Rate 18 Blood Pressure Blood Pressure [Le ft Arm] 123/83 Blood Pressure [Le ft Upper Arm] Pulse Oximetry 91 Oxygen Delivery Ut thod Room Air 11/10/24 23:03 11/11/24 00:00 11/11/24 00:00 Temperature 99.5 F Pulse Rate Pulse Rate [Pulse Oximeter] 109 H 101 H 101 H Respiratory Rate 18 Blood Pressure Blood Pressure [Le ft Arm] 95/68 Blood Pressure [Le ft Upper Arm] Pulse Oximetry 96 Oxygen Delivery Me thod Room Air 11/11/24 00:29 11/11/24 02:00 11/11/24 02:00 Temperature 98.5 F Pulse Rate 113 H Pulse Rate [Pulse Oximeter] 107 H 107 H Respiratory Rate 18 Blood Pressure Blood Pressure [Le ft Arm] 114/79 Blood Pressure [Le ft Upper Arm] Pulse Oximetry 96 Oxygen Delivery Me thod Room Air 11/11/24 04:00 11/11/24 04:00 11/11/24 06:00 Temperature 98.4 F Pulse Rate Pulse Rate [Pulse Oximeter] 102 H 102 H 117 H Respiratory Rate 20 Blood Pressure Blood Pressure [Le ft Arm] 108/80 Blood Pressure [Le ft Upper Arm] Pulse Oximetry 97 Oxygen Delivery Me thod Room Air 11/11/24 07:00 Temperature Pulse Rate 96 Pulse Rate [Pulse Oximeter] Respiratory Rate Blood Pressure Blood Pressure [Le ft Arm] Blood Pressure [Le ft Upper Arm] Pulse Oximetry Oxygen Delivery Me thod Labs Labs: Laboratory Results - last 24 hr 11/10/24 11/10/24 11/10/24 17:11 17:14 17:25 WBC 13.01 H RBC 3.90 L Hgb 9.7 L Hct 31.9 L MCV 82 MCH 25 L MCHC 30 L RDW Coeff of Arturo 21.1 H Plt Count 281 Neut % (Auto) 86.0 H Lymph % (Auto) 4.7 L [place] % (Auto) 8.8 Eos % (Auto) 0.0 Baso % (Auto) 0.2 Neut # (Auto) 11.20 H Lymph # (Auto) 0.60 L [place] # (Auto) 1.10 H Eos # (Auto) 0.00 Baso # (Auto) 0.00 Abs Immat Gran (auto) 0.00 Imm/Tot Granulo (auto) 0.3 Diff Slide Review Acceptable Review INR 0.98 APTT 29 Sodium 139 Potassium 3.8 Chloride 107 Carbon Dioxide 22 Anion Gap 10 BUN 21 Creatinine 0.7 Estimated Creat Clear Estimated GFR 91 Glucose 99 Hemoglobin A1c Lactate 4.4 H* Calcium 9.1 Total Bilirubin 0.3 AST 71 H ALT 33 Alkaline Phosphatase 74 Total Creatine Kinase 581 H Troponin I 2.26 H* C-Reactive Protein 4.2 H Total Protein 6.6 Albumin 3.6 Triglycerides Cholesterol LDL Cholesterol, Calc HDL Cholesterol Procalcitonin 0.13 TSH 0.933 Ethyl Alcohol < 0.01 SARS-CoV-2 (PCR) Negative SARS-CoV-2 Influenza Type A (PCR) Negative PCR FLU A Influenza Type B (PCR) Negative PCR FLU B Lab Acknowledgement Test Added Test Added 11/10/24 11/10/24 11/11/24 21:13 21:30 06:06 WBC 10.40 RBC 3.32 L Hgb 8.4 L Hct 26.7 L MCV 80 MCH 25 L MCHC 32 RDW Coeff of Arturo Plt Count 403 Neut % (Auto) Lymph % (Auto) [place] % (Auto) Eos % (Auto) Baso % (Auto) Neut # (Auto) Lymph # (Auto) [place] # (Auto) Eos # (Auto) Baso # (Auto) Abs Immat Gran (auto) Imm/Tot Granulo (auto) Diff Slide Review INR APTT Sodium 138 Potassium 3.6 Chloride 110 Carbon Dioxide 24 Anion Gap 4 L BUN 16 Creatinine 0.7 Estimated Creat Clear 34.47 Estimated GFR 91 Glucose 97 Hemoglobin A1c 4.8 Lactate 1.3 Calcium 8.7 Total Bilirubin AST ALT Alkaline Phosphatase Total Creatine Kinase 578 H Troponin I 4.83 H* 4.61 H* C-Reactive Protein 5.1 H Total Protein Albumin Triglycerides 102 Cholesterol 167 LDL Cholesterol, Calc 89 HDL Cholesterol 58 Procalcitonin TSH Ethyl Alcohol SARS-CoV-2 (PCR) Influenza Type A (PCR) Influenza Type B (PCR) Lab Acknowledgement Test Added
--- NOTE | 2024-11-11 11:40 | REH.SLP ---
ST received evaluation and treat orders for speech and swallowing. Chart review completed, LARYNGOLOGIST attempted evaluation. Pt was alert upon LARYNGOLOGIST arrival, patients family in room. Pt was verbalizing with her daughter that she wanted to get up and get some water from the kitchen. Pt's nurse and family were attempting to give pt a toothette, pt would not open mouth to accept, LARYNGOLOGIST also tried toothette with patient, she did not follow directions to open her mouth to accept toothette. Pt began to close her eyes and would not arouse after multiple attempts. LARYNGOLOGIST educated family on risk of dysphagia following a stroke and continuing NPO status until pt is awake, alert, and can follow simple commands to show safety for swallowing. Family was educated on the risk of aspiration. [place] can continue to be trialed only when pt is awake, alert, and sitting upright in bed to continue providing oral hygiene. ST will continue to follow and will assess as able and appropriate. Kari Ayoub MA, [facility]-LARYNGOLOGIST #[id number]
[2024-11-11] MEDS: METOPROLOL TARTRATE 1 MG/ML inj 5 MG IVP (11:52)
[2024-11-11] MEDS: SODIUM CHLORIDE 0.9 % (FLUSH) 10 ML SYRINGE 5 ML IVF (11:53)
[2024-11-11] MEDS: PANTOPRAZOLE SODIUM 40 MG INJ IVP (11:53)
[2024-11-11] MEDS: NICOTINE 7 MG PATCH 1 PATCH TRANSDERMA (11:54)
[2024-11-11] MEDS: LIDOCAINE 5% PATCH 1 PATCH TRANSDERMA (13:55)
[2024-11-11] MEDS: METOPROLOL TARTRATE 1 MG/ML inj 2.5 MG IVP ×3 (13:56→18:39)
[2024-11-11 15:15] LABS: Hemoglobin* 8.8 gm/dL (12.0-16.0)
--- NOTE | 2024-11-11 16:31 | PC.SOCIAL ---
Discharge planning: shore worker received a referral on the pt for discharge planning. Pt had many consults today. shore worker will touch base with the provider on duty in the morning to discuss plans of care/discharge planning needs. Social work to follow-up as needed.
[2024-11-11] MEDS: ACETAMINOPHEN INJ 1,000 MG/100 ML VIAL 400 MG IVPB (17:42)
[2024-11-11] MEDS: ENOXAPARIN 40 MG/0.4 ML INJ SUBCUT (18:32)
--- NOTE | 2024-11-11 19:27 | PC.NURSE ---
End of shift [id number] - Pt not awake most of shift, intermittently rousable to name, and unable to follow directions. During wakeful periods pt noted to be disoriented to time, place, and situation and difficult to redirect. Tolerating RA and NPO diet per MD. Pt unable to verbalized physical discomfort, however reported to family and RN want for something to drink frequently during shift. Pt unable to follow directions and participate in swallow eval. Noted to cough with use of mouth moistening swabs. Newton catheter noted to be patent and draining. Elevated HR noted by RN, MD aware and orders given. Pt in bed at end of shift with family at bedside.
[2024-11-11] MEDS: 0.9 % SODIUM CHLORIDE 250 ml 250 ML IV ×2 (22:40→23:47)
[2024-11-12 00:13] VITALS: BP 83/49; PULSE 141
--- NOTE | 2024-11-12 03:46 | PC.NURSE ---
At approximately 2230 on the evening of 11/11 it was noted by tele monitor that pt's heart rate had spiked to 153. This loan underwriter then assessed B/P and noted pt's blood pressure did not qualify for parameters of PRN IV Metoprolol due to hypotension. PRN Morphine was also provided in case tachycardia was influenced by potential unreported pain. Digital Account Manager updated Lizet Debus regarding pt's tachycardia along with urine noted to be concentrated light jg and received order to give 250 mL NS bolus which was given. Upon reassessment approximately one hour later and after bolus had finished, pt's blood pressure was noted to be hypotensive while HR remained tachycardic. Digital Account Manager updated Lizet Debus again and received order to give additional 250 mL NS bolus and IV Ativan due to pt becoming agitated and trying to sit up at side of bed. Second bolus was given though pt remained hypotensive with blood pressure as low as 83/49. Lizet Durantus was updated and gave order to start Diltiazem drip due to previous interventions being ineffective to control HR and B/P. Nursing staff contacted angelica Washington to provide update regarding pt's health status and the inability to effectively control HR due to pt's continued hypotension despite giving extra IV fluids along with pt agitation that nursing staff were noting. Daughter requested pt not be started on Diltiazem drip and that nursing provide comfort cares. Pt unable to effectively verbally communicate with staff due to stroke which occurred before admission. Lizet Patel was updated regarding family's wishes for comfort cares and gave order for comfort cares. Newton catheter discontinued per order as pt was noted to be pulling at catheter tubing. Pt family here at this time- angelica Washington has been educated regarding comfort cares protocol. Daughter thanked staff for cares and education provided. PRN Morphine and Ativan utilized to promote comfort. Staff have also been providing oral cares and repositioning as tolerated. Fentanyl patch placed per order. Bed alarm on at this time and call light within reach with family at bedside.
[2024-11-12] MEDS: SODIUM CHLORIDE 0.9 % (FLUSH) 10 ML SYRINGE 5 ML IVF ×5 (04:59→22:36)
--- NOTE | 2024-11-12 09:05 | REH.SLP ---
Per inpatitent rounds discussion, patient's goals of care have changed to comfort cares, therefore, speech therapy consult no longer indicated. Order stopped.
--- NOTE | 2024-11-12 12:10 | PM.IMPN1 ---
Assessment and Plan Assessment and plan (1) CVA (cerebral vascular accident): Problem comment: -CT head shows Acute-appearing large right MCA territory infarct. No hemorrhagic transformation. No midline shift or herniation -CTA head/neck shows no intracranial large vessel occlusion. No hemodynamically significant stenosis or dissection in the neck -ED provider discussed with Neurology, Dr. Casillas. Believes he sees some small petechial hemorrhage within the infarct. Recommending local hospitalization but notes patient is at risk for malignant edema, not a candidate for lytic therapy. Received rectal ASA in ER -MRI 11/11: Large area of cytotoxic edema throughout the right MCA distribution, compatible with acute/subacute infarct -sleepy, minimally arousable with hypotension and evidence of KS; family elected to transition to comfort care Status: Acute (2) Elevated troponin: Problem comment: -peaked at 4.83 -multiple wall motion abnormalities on TTE 11/11 Status: Acute (3) Need for comfort care: Problem comment: - transitioned to comfort care 11/12 - appears to be quickly transitioning, will not seek out placement at this time Status: Acute Plan -continue comfort care protocol -daughter and sister updated bedside, questions answered Subjective Date Seen: 11/12/24 Interval history: Jordana was admitted to the hospital 11/10 for a R MCA CVA; presented to the ER with confusion and L sided weakness. Last known well was the evening of 11/09. Workup revealed elevated troponin, f/u TTE c/w multiple wall motion abnormalities. Was intermittently somnolent and agitated after admission, unable to participate in therapies. Hypotensive despite IV fluid boluses with persistent AFib RVR (new problem on 11/11); after discussion of multi system organ failure with family, elected to transition to comfort cares last night. This morning, patient is sleeping in bed, she is not arousable to voice or touch. She has snoring respirations. She appears comfortable. Exam Narrative: Exam Narrative: Sleeping in bed, snoring respirations with 2 short episodes of apnea during my visit Heart rate palpates in the 160 range, irregular Extremities are thin, warm Const: Vital Signs, click to edit/add: Vital Signs - 24 hr 11/11/24 12:23 11/11/24 14:00 11/11/24 15:00 Temperature 99.0 F Pulse Rate 107 H Pulse Rate [Pulse Oximeter] 81 92 Respiratory Rate 18 Blood Pressure [Le ft Arm] 129/83 Blood Pressure [Ri ght Arm] Pulse Oximetry 100 Oxygen Delivery Me thod Room Air 11/11/24 15:00 11/11/24 16:00 11/11/24 18:00 Temperature 98.1 F Pulse Rate Pulse Rate [Pulse Oximeter] 92 107 H 83 Respiratory Rate 18 Blood Pressure [Le ft Arm] 118/90 H Blood Pressure [Ri ght Arm] Pulse Oximetry 95 Oxygen Delivery Me thod Room Air 11/11/24 19:59 11/11/24 20:05 11/11/24 22:00 Temperature 98.3 F Pulse Rate Pulse Rate [Pulse Oximeter] 88 88 88 Respiratory Rate 16 Blood Pressure [Le ft Arm] Blood Pressure [Ri ght Arm] 99/72 Pulse Oximetry [address] thod Room Air 11/11/24 22:32 11/11/24 23:00 11/11/24 23:30 Temperature Pulse Rate 153 H Pulse Rate [Pulse Oximeter] 153 H 153 H Respiratory Rate 16 Blood Pressure [Le ft Arm] 102/73 Blood Pressure [Ri ght Arm] Pulse Oximetry Oxygen Delivery Me thod 11/11/24 23:35 11/11/24 23:53 11/12/24 00:13 Temperature 97.5 F L Pulse Rate Pulse Rate [Pulse Oximeter] 157 H 141 H Respiratory Rate 18 Blood Pressure [Le ft Arm] 93/82 89/70 L 83/49 L Blood Pressure [Ri ght Arm] Pulse Oximetry [address] thod Room Air Labs Labs: Laboratory Results - last 24 hr 11/11/24 15:00 Hgb 8.8 L
[2024-11-12] MEDS: SCOPOLAMINE 1 MG/3 DAY PATCH 1 PATCH TRANSDERMA (12:40)
[2024-11-12] MEDS: LIDOCAINE 5% PATCH 1 PATCH TRANSDERMA (12:41)
[2024-11-12] MEDS: NICOTINE 7 MG PATCH 1 PATCH TRANSDERMA (12:41)
--- NOTE | 2024-11-12 15:45 | PC.SOCIAL ---
Discharge planning: fruit i farmworker met with the pt's family to discuss hospice care at a care facility per the provider on duty's request. fruit i farmworker met with the family and explained hospice facility care options in [place] and their cost. Pt's family was interested in [facility] on the [facility]. Later, after further discussion with the provider on duty, this renal social worker was notified that the pt was imminently dying and will be staying in the hospital for end of life care. No other social work needs at this time. Social work to follow-up if needed.
[2024-11-12] MEDS: HYOSCYAMINE SULFATE 0.125 MG TAB SUBLINGUAL (15:50)
--- NOTE | 2024-11-12 19:44 | PC.NURSE ---
End of Shift note (CCU4) Patient has been sleeping throughout shift. Comfort cares with PRN pain control. Shallow respirations and irregular heartbeats noted. Family members in the room throughout the day. Patient not showing any signs of pain or restlessness. Skin warm and pale. Nicotine patch on left upper arm. Lidocaine patch lower back. Fentanyl patch back of right shoulder.
[2024-11-12 23:00] VITALS: RESP 16
--- NOTE | 2024-11-13 07:02 | PC.NURSE ---
End of Shift: Pt comfort cares. Exhibiting air hunger, prn medication provided. Turned and repoed throughout shift. Pt had no output. At 0318 time of was called. Family notified shortly after. [facility] called at [phone]. home collected pt at [phone]. ?
--- NOTE | 2024-12-15 11:06 | PM.DN ---
Pronouncement Note Date and Time of Date of : 11/13/24 Time of : 03:18 PCOD Preliminary cause of : Cerebrovascular accident (CVA) Contributing Factors (1) CVA (cerebral vascular accident): (2) Elevated troponin: (3) Need for comfort care: Summary Additional details: Patient was admitted to the hospital with CVA also noted to have a non-STEMI. Family elected to transition to comfort cares and she remained comfortable, dying on 11/13/2024 with family bedside. Additional Data Confirmation of : no pulse and no respirations Family: at bedside Attending physician: MADHU
== END 2024-11-13 06:29 | disposition expired | DRG 64 ==
LOC: ED 17:54 → MEDSURG 20:03
PROVIDERS: Family Medicine; Physician Assistant; Admitting Provider Family Medicine; Emergency Provider Emergency Medicine; PCP Family Medicine; Visit Provider Family Medicine
DX: I63.411 Cerebral infarction due to embolism of right middle cerebral artery (principal); J69.0 Pneumonitis due to inhalation of food and vomit; I21.4 Non-ST elevation (NSTEMI) myocardial infarction; G81.94 Hemiplegia, unspecified affecting left nondominant side; I48.19 Other persistent atrial fibrillation; R29.711 NIHSS score 11; R79.89 Other specified abnormal findings of blood chemistry; R45.1 Restlessness and agitation; I73.9 Peripheral vascular disease, unspecified; T69.1XXA Chilblains, initial encounter; F41.9 Anxiety disorder, unspecified; I10 Essential (primary) hypertension; F17.290 Nicotine dependence, other tobacco product, uncomplicated; K21.9 Gastro-esophageal reflux disease without esophagitis; G89.29 Other chronic pain; M54.50 Low back pain, unspecified; E03.9 Hypothyroidism, unspecified; E78.5 Hyperlipidemia, unspecified; R40.2412 Glasgow coma scale score 13-15, at arrival to emergency department
CPT/HCPCS: 36415; 70450; 70496; 70498; 70551; 71250; 72125; 80048; 80053; 80061; 81001; 82077; 82270; 82550; 83036; 83605; 83735; 84145; 84443; 84484; 85018; 85025; 85027; 85610; 85730; 86140; 87040; 87631; 93005; 93306; 94761; 97161; 97167; 99285; 99291; G0427; A9270; J0131; J1650; J1956; J2060; J2270; J2470; J7030; J7050; Q9967; S4990